=== PATIENT | female | born 1945 | race Caucasian/White ===

== ENCOUNTER 2024-11-30 14:35 | Inpatient (IN) | payer MEDICARE, SELFPAY ==
[2024-11-30 15:35] VITALS: BMI 33.3
[2024-11-30 16:00] VITALS: BP 173/80; PULSE 72; RESP 18; TEMP 36.8; O2SAT 98
[2024-11-30 16:21] VITALS: BP 148/71
[2024-11-30] MEDS: Potassium Chloride Oral Tablet 20 MEQ PO (17:47)
[2024-11-30 18:17] VITALS: O2SAT 98
[2024-11-30] MEDS: proCHLORPERazine 5 MG Tablet 10 MG PO (18:40)
--- NOTE | 2024-11-30 18:55 | CASEMGMT ---
Social Work Met with patient to complete initial assessment. Introduced self and role. Patients daughter Vicenta was also present during interview and helped provide information. SW verified contacts. Patient stated that she was a full code but would like to be a DNRCCA, nursing staff on TCU made aware. Patients goal is to return home with daughter. SW will continue to follow for DC planning. Bibi Wheeler, ETL SOFTWARE ENGINEER, SECURITY OPERATIONS ANALYST
[2024-11-30] MEDS: Albuterol IH (6.7 GM) 1 PUFF INHALER 2 PUFF INHALATION (19:03)
--- NOTE | 2024-11-30 20:11 | PCM.HP.STD ---
HPI - General General Date of Admission: 11/30/24 Date of Service: 11/30/24 Chief Complaint: Here for rehabilitation. HPI Narrative AL HINTON, is a 79 Female who presents with followin11/24/2024 [facility] ED shortness of breath. Short of breath for 5 hours, pulsoxi 70% on room air per patient. Chronic oxygen 4 liters per nasal cannula at night, Increased shortness of breath today. EKG okay, Troponin indeterminate, repeat troponin stable. covid negative, flu negative, rsv negative. CT chest negative for pulmonary embolism, negative for pneumonia. Pulsox 87% with ambulation. Admit for COPD exacerbation. 11/24/2024 Admit [facility]. Doxycycline iv, Solu-medrol iv for copd exacerbation. Doppler ultrasound bilateral lower extremity to rule out dvt. PT/OT/CM for weakness. 11/25/2024 Breathing improved, oxygen 2 liters per nasal cannula, wheezing, and coughing. Continues to smoke 1 pack per day.. Doxycycline iv, Solu-medrol iv, aerosols for COPD exacerbation. CT A/P negative for bowel obstruction, patient had abdominal pain. CT showed nodular fatty liver consistent with cirrhosis, cannot rule out metastatic disease. Start Laxatives for constipation. PT/OT for weakness. 11/25/2024 Doppler ultrasound bilateral lower extremity negative for dvt. 11/26/2024 Nausea. Titrate oxygen to pulsox 90%. Senna, Miralax, prune juice for constipation. TSH high, Synthroid increased to 200mcg daily. 11/27/2024 Nausea improved, stool in colostomy. PT/OT for debility. 11/28/2024 Nausea, watery stool in colostomy. Change IV doxycycline, IV solu-mectol to PO Doxycycline, PO prednisone, for COPD exacerbation. Fatty liver, possible cirrhosis, follow up with GI, oncology. 11/29/2024 Nausea much better. Await SNF Pre-CERT. 11/30/2024 Admit to TCU with debility, here for rehabilitation, strengthening, prior to discharge home with daughter. [facility] Medical History (Updated 11/30/24 @ 20:[address] Tony Campos MD) Cancer Smoker COPD (chronic obstructive pulmonary disease) Home Medications ?Medication ?Instructions ?Recorded ?Last Taken ?Type albuterol sulfate 90 mcg/actuation 2 puff inhalation Q4H PRN PRN sob 11/24/24 11/30/24 History aerosol inhaler aspirin 81 mg tablet,delayed 81 mg PO DAILY blood thinner 11/24/24 Unknown History release (Adult Aspirin Regimen) atorvastatin 10 mg tablet 10 mg PO DAILY cholesterol 11/24/24 Unknown History calcium phosphate,dibasic 77 1 tab PO DAILY supplement 11/24/24 Unknown History mg-vitamin D3 400 unit tablet cetirizine 10 mg tablet 10 mg PO DAILY allergies 11/24/24 Unknown History cyanocobalamin (vitamin B-12) 500 500 mcg PO QDAY supplement 11/24/24 Unknown History mcg tablet (B-12 DOTS) docusate sodium 100 mg capsule 100 mg PO BID stool softener 11/24/24 Unknown History (Colace) furosemide 20 mg tablet 20 mg PO DAILY fluid pill 11/24/24 Unknown History gabapentin 600 mg tablet 600 mg PO TID nerve pain 11/24/24 Unknown History glycopyrrolate 9 mcg-formoterol 2 puff inhalation BID respiratory 11/24/24 Unknown History 4.8 mcg HFA aerosol inhaler (Bevespi Aerosphere) hydrocodone-acetaminophen 5-325mg 1 tab PO Q8H PRN PRN pain 11/24/24 Unknown History 5mg-325mg pantoprazole 40 mg tablet,delayed 40 mg PO DAILY reflux 11/24/24 Unknown History release paroxetine HCl 30 mg tablet 30 mg PO DAILY mood 11/24/24 Unknown History polysaccharide iron complex 150 mg 150 mg PO DAILY supplement 11/24/24 Unknown History iron capsule (Ferrex) potassium chloride 20 mEq 20 meq PO BID supplement 11/24/24 Unknown History tablet,extended release(part/cryst) sennosides 8.6 mg tablet (Natural 8.6 mg PO DAILY stool softener 11/24/24 Unknown History Senna Laxative) thiamine HCl (vitamin B1) 100 mg 100 mg PO DAILY supplement 11/24/24 Unknown History tablet (Vitamin B-1) tizanidine 2 mg tablet 2 mg PO BID muscle spasms 11/24/24 Unknown History levothyroxine 100 mcg tablet 200 mcg (2 x 100 mcg) PO 11/30/24 Unknown Rx DAILY@0600 thyroid #30 tabs prednisone 20 mg tablet 40 mg (2 x 20 mg) PO BREAKFAST 11/30/24 Unknown Rx steroid 3 days #6 tabs Allergy/AdvReac Type Severity Reaction Status Date / Time Sulfa (Sulfonamide Allergy Unknown PT UNSURE Verified 11/24/24 17:34 Antibiotics) OF REACTION varenicline (From Chantix) AdvReac Severe SUICIDAL Verified 11/24/24 17:35 IDEATION Surgical History (Updated 11/30/24 @ 20:[address] Tony Campos MD) History of colostomy Social History (Updated 11/30/24 @ 20:[address] Tony Campos MD) household members: children and other details: Lives with daughter. Smoking Status: Current every day smoker tobacco type: cigarettes alcohol intake: never substance use type: does not use ROS Constitutional Constitutional: Reports weakness; Denies chills, fever(s) or weight gain ENT HEENT: Denies headache(s), nasal congestion or nasal discharge Cardiovascular Cardiovascular: Denies chest pain or palpitations Respiratory/Chest Respiratory/Chest: Reports shortness of breath with exertion; Denies cough or excessive phlegm production Gastrointestinal Gastrointestinal: Denies abdominal pain, nausea or vomiting Genitourinary Genitourinary: Denies dysuria Musculoskeletal Musculoskeletal: Denies joint pain or joint swelling Integumentary Integumentary: Denies rash or wounds Neurologic Neurologic: Denies focal weakness, numbness or tingling Psychiatric Psychiatric: Denies anxiety, auditory hallucinations, depression, homicidal ideation or suicidal ideation Vital Signs Vital Signs Vital Signs: 11/30/24 15:50 11/30/24 16:00 11/30/24 16:21 Temperature 98.3 F Temperature Source Temporal Pulse Rate 72 Pulse Rhythm Regular Pulse Strength Normal (2+) Respiratory Rate 18 Respiratory Effort Normal Non-Labored Respiratory Depth Normal Respiratory Pattern Normal Blood Pressure 173/80 H 148/71 H Blood Pressure Mean 111 96 Blood Pressure Source Monitor Monitor Pulse Ox 98 Oxygen Delivery Method Nasal Cannula Nasal Cannula Oxygen Flow Rate (L/min) 4 4 11/30/24 18:17 Temperature Temperature Source Pulse Rate Pulse Rhythm Pulse Strength Respiratory Rate Respiratory Effort Respiratory Depth Respiratory Pattern Blood Pressure Blood Pressure Mean Blood Pressure Source Pulse Ox 98 Oxygen Delivery Method Nasal Cannula Oxygen Flow Rate (L/min) 4 Weight Weight: 88.11 kg Body Mass Index (BMI) 33.3 Physical Exam Const alert General Appearance: cooperative HEENT normocephalic Eyes PERRL and EOMs intact bilaterally Neck supple, no JVD and no carotid bruits Resp normal respiratory effort, normal air movement and clear to auscultation bilaterally Cardio regular rate and regular rhythm GI normal to inspection, nondistended, normoactive bowel sounds, non-tender and non-distended GI Narrative: Colostomy present. Extremity normal capillary refill General Extremity: Negative for edema Skin no rashes or lesions noted General Skin Exam: no breakdown Psych affect normal Appearance: appropriate Assessment & Plan Assessment/Plan (1) History of colostomy: (2) Debility: (3) Acute respiratory failure with hypoxia: (4) COPD exacerbation: (5) Constipation: (6) Tobacco abuse: (7) Morbid obesity: (8) Fatty liver: (9) Hepatic cirrhosis: QUALIFIERS: Ascites presence: without ascites Hepatic cirrhosis type: unspecified hepatic cirrhosis Qualified Code(s): K74.60 - Unspecified cirrhosis of liver PLAN: Plan 79 year old female with below past medical history hospitalized for acute respiratory failure with hypoxia 2/2 copd exacerbation, complicated by constipation, fatty liver cirrhosis, rule out liver metastasis, admitted to TCU with debility, here for rehabilitation, strengthening, prior to discharge home with daughter. Debility - PT/OT. Pain - [place] 5/325mg 1 tablet q8 prn. Bowel - Senna 1 tablet daily, Colace 100mg bid, Dulcolax 10mg pr x 1 prn, Magnesium citrate 300mL po x 1 prn. Adult immunization - Administer pneumonia vaccine, covid vaccine, flu vaccine as appropriate. DVT prophylaxis - Lovenox 40mg sc daily. Liver masses - order CT guided biopsy of liver to evaluate for cirrhosis versus metastasis. COPD - Anoro 1 puff daily, Albuterol 2 puffs q4 prn, Prednisone taper. CV prophylaxis - Aspirin 81mg daily. Hyperlipidemia - Atorvastatin 10mg qhs. Calcium deficiency - Calcium D 1 tablet daily. Vitamin B12 deficiency - B12 500mcg daily. Edema - Furosemide 20mg daily. Neuropathic pain - Gabapentin 600mg tid. Iron deficiency anemia - Ferrex 150mg daily. Hypothyroidism - Levothyroxine 200mcg daily. Allergic rhinitis - Loratadine 10mg daily. Tobacco Abuse - Nicotine 14mg td daily. GERD - Pantoprazole 40mg daily. Depression - Paroxetine 30mg daily, stable chronic correction use, GDR not recommended. Dry Eyes - Artificial teras 2 gtt q1h prn. Hypokalemia - KCL 20meq bidcm. Nausea - Compazine 10mg q4 prn. Thiamine deficiency - Thiamine 100mg daily. Muscle spasm - Tizanidine 2mg bid.
[2024-11-30] MEDS: Gabapentin 600 MG Tablet PO (21:10)
[2024-11-30] MEDS: Ondansetron ODT 4 MG Tablet 8 MG PO (21:10)
[2024-11-30] MEDS: tiZANidine HCl 2 MG Tablet PO (21:11)
[2024-11-30] MEDS: Atorvastatin Calcium 10 MG Tablet PO (21:11)
[2024-11-30] MEDS: Docusate Sodium 100 MG Capsule PO (21:11)
--- NOTE | 2024-12-01 00:03 | NURSING ---
Patient c/o nausea this shift. PRN compazine was administered by dayshift right before shift change. This nurse offered patient seth zafar and saltine crackers. Patient accepted. This nurse consulted Dr. Campos via secure text. Per Dr. Campos, new order for PRN zofran 8mg PO Q8H. Order read back and verified by Dr. Campos.
[2024-12-01] MEDS: HYDROcodone Bitartrate/Apap 5/325 Tablet PO (01:13)
[2024-12-01] MEDS: proCHLORPERazine 5 MG Tablet 10 MG PO ×2 (01:13→11:09)
[2024-12-01] MEDS: Gabapentin 600 MG Tablet PO ×3 (05:28→22:13)
[2024-12-01] MEDS: Levothyroxine 100 MCG Tablet 200 MCG PO (05:28)
[2024-12-01] MEDS: Enoxaparin 40 MG/0.4 ML Syringe SC (05:29)
[2024-12-01] MEDS: Ondansetron ODT 4 MG Tablet 8 MG PO (05:29)
[2024-12-01 05:34] VITALS: RESP 18; O2SAT 98
[2024-12-01 07:56] LABS: Absolute Lymphocyte Count 0.83 X10^3/uL (0.83-4.51); Absolute Neutrophil Count 12.5 X10^3/uL (2.0-7.7); Basophil# 0.04 X10^3/uL; Basophil% 0.3 % (0-1); Eosinophil# 0.07 X10^3/uL; Eosinophils% 0.5 % (0-5); Hematocrit 38.8 % (37-47); Hemoglobin 12.8 g/dL (12.0-15.0); Lymphocyte # 0.83 X10^3/ul (0.83-4.51); Lymphocyte % 5.7 % (19-41); Mean Corpuscular Hgb 31.4 pg (27.0-32.0); Mean Corpuscular Volume 95.1 fL (81-99); Mean Platelet Vol. 10.3 fl (6.2-12.0); Monocyte# 0.95 X10^3/uL; Monocyte% 6.5 % (0-10); NRBC Flagged by Analyzer 0 % (0-5); Neutrophil # 12.53 X10^3/uL (2.7-7.7); Platelet Count 192 K/mm3 (150-450); RBC Distribution Width SD 45.6 fl (35.1-43.9); Red Blood Count 4.08 M/mm3 (4.2-5.4); White Blood Count 14.6 K/mm3 (4.4-11.0)
[2024-12-01 08:55] LABS: Anion Gap 11 (5-15); BUN 29 mg/dL (4-19); BUN/Creat Ratio 30.3 RATIO (10-20); Calcium,Total 8.5 mg/dL (7.6-11.0); Carbon Dioxide 29.7 mmol/L (21.0-32.0); Chloride 93 mmol/L (98-108); Creatinine, Serum 0.96 mg/dL (0.70-1.20); EST Glomerular Filtration Rate 60 (>60); Estimated Creatinine Clearance 51.06 ml/min (50-250); Glucose 137 mg/dL (70-99); Potassium 4.7 mmol/L (3.3-5.1); Sodium Level 134 mmol/L (133-145)
--- NOTE | 2024-12-01 09:42 | CASEMGMT ---
Addendum entered by Kathy Quinn 12/01/24 11:01: SW spoke with pt and agreed in completing HCPOA/LW, naming dtr, as POA. SW to complete prior to DC as time allows. Addendum entered by Kathy Quinn 12/01/24 10:02: Addendum: SW also educated dtr to Medicare benefit. Dtr confirmed pt does not have a secondary insurance. SW educated if pt remained past day 21, which is 12/20, pt would accrue a $209.50/day copay. Dtr and this worker confirmed the goal is for pt to DC home prior to 12/20. SW will assist with DC planning. Original Note: Social Work SW followed up with dtr on palliative care meeting. Dtr stated it was canceled for 11/30 d/t being in TCU, but plans to reschedule when pt discharges. SW to assist with coordination. SW inquired about advance directives. Dtr stated pt had changed code status to DNR-CCA, no intubation. SW inquired about HCPOA/LW. Dtr denied pt having those documents completed, but agrees to needing them completed. SW to follow up with pt on wishes to complete. Dtr appreciative. - SW sent secure email to [facility] notifying of pts admission and will notify when DC date is set to reschedule meeting. SW will continue to follow. Kathy WATTSW
[2024-12-01 10:02] VITALS: BP 121/62; PULSE 61; RESP 18; TEMP 36.1; O2SAT 98
[2024-12-01] MEDS: Loratadine 10 MG Tablet PO (10:08)
[2024-12-01] MEDS: predniSONE 20 MG Tablet 40 MG PO (10:08)
[2024-12-01] MEDS: Potassium Chloride Oral Tablet 20 MEQ PO ×2 (10:08→16:24)
[2024-12-01] MEDS: Umeclidinium Brm/Vilanterol 62.5-25 mcg Inh 1 PUFF INHALATION (10:08)
[2024-12-01] MEDS: Docusate Sodium 100 MG Capsule PO ×2 (10:08→22:13)
[2024-12-01] MEDS: Thiamine Hydrochloride 100 MG Tablet PO (10:08)
[2024-12-01] MEDS: Aspirin E.C. 81 MG Tablet PO (10:08)
[2024-12-01] MEDS: Iron Polysaccharide Complex 150 MG CAPSULE PO (10:08)
[2024-12-01] MEDS: Calcium Carb/Vitamin D 1 TABLET Tablet PO (10:08)
[2024-12-01] MEDS: Furosemide 20 MG Tablet PO (10:08)
[2024-12-01] MEDS: Nystatin Powder 15gm Bottle 1 APPLIC TOPICAL (10:09)
[2024-12-01] MEDS: Pantoprazole Sodium 40 MG Tablet PO (10:09)
[2024-12-01] MEDS: PARoxetine 10 MG Tablet 30 MG PO (10:09)
[2024-12-01] MEDS: Cyanocobalamin 500 MCG Tablet PO (10:09)
[2024-12-01] MEDS: tiZANidine HCl 2 MG Tablet PO ×2 (10:10→22:13)
[2024-12-01] MEDS: Tuberculin,Purif.prot.deriv. 50 TU/ML Vial 0.1 ML ID (11:09)
--- NOTE | 2024-12-01 12:59 | NURSING ---
Tamera from CT called- pt to go for liver biopsy 12/02/24. Pt is to be taken down at 830. Pt to be NPO after midnight . Hold Lovenox in AM 12/02/24
--- NOTE | 2024-12-01 15:18 | CHAPLAIN ---
Type of Pastoral Visit _x__ Initial Visit ___ Follow-up Visit ___ On-call Visit ___ General Patient Visit ___ Spiritual Assessment ___ Family Conference ___ Bereavement ___ Rapid Response ___ Code Blue ___ Other (describe below) Pastoral Care Referral From _x__ Patient ___ Family ___ Nurse ___ Physician ___ Transition Nurse ___ Electronics Specialist ___ Other (describe below) Sacrament/Intervention _x__ Active listening ___ Anointing ___ Tenriism ___ Bereavement ___ Communion ___ Rebecca exploration ___ _x__ Life review ___ Prayer ___ Reconciliation ___ Sacrament of Sick _x__ Supportive presence ___ Wedding ___ Other (describe below) Pastoral Comments patient is welcoming and asks this client integration manager to have a seat; pt is asked about her life and how she is handling this situation; pt gives some overview of her life and that she had moved back to [place] about two years ago to be near her daughter and family; pt had lived in [place] for over 20 years and cared for her elderly mother before she there; pt is admitting that she is now more like the one in need of care although she states that her health is pretty good even with the copd; pt has been affiliated with the [employer] [facility] but is not established with the local fellowship in [place] yet; pt is quite tired and is ready to sleep so the visit ended
--- NOTE | 2024-12-01 15:22 | PCM.PN.DRR ---
TCU RX Drug Regimen Review Subjective/Objective Subjective/Objective Subjective: 79 YOF admitted to TCU 11/30/24 s/p hospitalization for a COPD exacerbation. Admitted for rehabilitation and strengthening prior to discharge home where she currently resides with her daughter. Objective: Allergies Sulfa (Sulfonamide Antibiotics) Allergy (Unknown, Verified 11/24/24 17:34) PT UNSURE OF REACTION varenicline (From Chantix) Adverse Reaction (Severe, Verified 11/24/24 17:35) SUICIDAL IDEATION Current Medications Generic Name Dose Route Start Last Admin Trade Name Freq PRN Reason Stop Dose Admin Hydrocodone Bitart/Acetaminophen 1 tablet 11/30/24 15:22 12/01/24 01:13 Hydrocodone Bitartrate/Apap 5/325 Tablet PO 1 tablet Q8H PRN PRN Administration PAIN 1-10 Albuterol Sulfate 2.5 mg 12/01/24 07:41 Albuterol 2.5 Mg/3 Ml Vial.Neb. INHALATION Q2H PRN PRN DYSPNEA/WHEEZING/SOB Aspirin 81 mg 12/01/24 08:00 12/01/24 10:08 Aspirin E.C. 81 Mg Tablet PO 81 mg BREAKFAST ANN Administration Atorvastatin Calcium 10 mg 11/30/24 22:00 11/30/24 21:11 Atorvastatin Calcium 10 Mg Tablet PO 10 mg QHS ANN Administration Bisacodyl 10 mg 11/30/24 15:29 Bisacodyl 10 Mg Suppository RC DAILY PRN PRN Constipation Calcium/Vitamin D 1 tablet 12/01/24 08:00 12/01/24 10:08 Calcium Carb/Vitamin D 1 Tablet Tablet PO 1 tablet DAILYCM ANN Administration Cyanocobalamin 500 mcg 12/01/24 10:00 12/01/24 10:09 Cyanocobalamin 500 Mcg Tablet PO 500 mcg DAILY ANN Administration Docusate Sodium 100 mg 11/30/24 22:00 12/01/24 10:08 Docusate Sodium 100 Mg Capsule PO 100 mg BID ANN Administration Enoxaparin Sodium 40 mg 12/01/24 06:00 12/01/24 05:29 Enoxaparin 40 Mg/0.4 Ml Syringe SC 40 mg DAILY@0600 ANN Administration Furosemide 20 mg 12/01/24 10:00 12/01/24 10:08 Furosemide 20 Mg Tablet PO 20 mg DAILY ANN Administration Protocol Gabapentin 600 mg 11/30/24 22:00 12/01/24 05:28 Gabapentin 600 Mg Tablet PO 600 mg TID ANN Administration Glycerin/Hypromellose/Polyethylene 2 drp 11/30/24 15:29 Glycerin/Hypromellose/[id number] 15 Ml Bottle EACH EYE Q1H PRN DRY EYES Levothyroxine Sodium 200 mcg 12/01/24 06:00 12/01/24 05:28 Levothyroxine 100 Mcg Tablet PO 200 mcg DAILY@0600 ANN Administration Loratadine 10 mg 12/01/24 10:00 12/01/24 10:08 Loratadine 10 Mg Tablet PO 10 mg DAILY ANN Administration Magnesium Citrate 300 ml 11/30/24 15:29 Magnesium Citrate 300 Ml PO X1 PRN Constipation Nicotine 14 mg 12/01/24 10:00 12/01/24 10:09 Nicotine 14 Mg Patch TD 14 mg DAILY [facility] Administration Nystatin 1 applic 12/01/24 10:00 12/01/24 10:09 Nystatin Powder 15gm Bottle TOPICAL 1 applic BID ANN Administration Protocol Ondansetron HCl 8 mg 11/30/24 20:47 12/01/24 05:29 Ondansetron Odt 4 Mg Tablet PO 8 mg Q8H PRN PRN Administration NAUSEA/VOMITING Pantoprazole Sodium 40 mg 12/01/24 10:00 12/01/24 10:09 Pantoprazole Sodium 40 Mg Tablet PO 40 mg DAILY [facility] Administration Paroxetine HCl 30 mg 12/01/24 10:00 12/01/24 10:09 Paroxetine 10 Mg Tablet PO 30 mg DAILY [facility] Administration Polysaccharide Iron Complex 150 mg 12/01/24 10:00 12/01/24 10:08 Iron Polysaccharide Complex 150 Mg Capsule PO 150 mg DAILY [facility] Administration Potassium Chloride 20 meq 11/30/24 17:00 12/01/24 10:08 Potassium Chloride Oral Tablet 20 Meq PO 20 meq BIDCM [facility] Administration Prednisone 40 mg 12/01/24 08:00 12/01/24 10:08 Prednisone 20 Mg Tablet PO 12/06/24 08:01 40 mg BREAKFAST ANN Administration Prochlorperazine Maleate 10 mg 11/30/24 17:59 12/01/24 11:09 Prochlorperazine 5 Mg Tablet PO 10 mg Q4H PRN PRN Administration NAUSEA/VOMITING Senna 1 tablet 12/01/24 10:00 12/01/24 10:09 Senna Tablet PO Not Given DAILY ANN Sodium Chloride 10 - 40 ml 11/30/24 16:28 0.9% Saline Lock 10 Ml Syringe IV UD PRN SALINE FLUSH Thiamine HCl 100 mg 12/01/24 08:00 12/01/24 10:08 Thiamine Hydrochloride 100 Mg Tablet PO 100 mg DAILYCM ANN Administration Tizanidine HCl 2 mg 11/30/24 22:00 12/01/24 10:10 Tizanidine Hcl 2 Mg Tablet PO 2 mg BID ANN Administration Tuberculin PPD 0.1 ml 12/08/24 10:00 Tuberculin,Purif.Prot.Deriv. 50 Tu/Ml Vial ID 12/08/24 10:01 X1 ONE Umeclidinium/Vilanterol 1 puff 12/01/24 10:00 12/01/24 10:08 Umeclidinium Brm/Vilanterol 62.5-25 Mcg Inh INHALATION 1 puff DAILY ANN Administration Problem List Fatty liver (Acute) Morbid obesity (Acute) Constipation (Acute) COPD exacerbation (Chronic) Acute respiratory failure with hypoxia (Acute) Debility (Acute) History of colostomy (Acute) Hepatic cirrhosis (Acute) Tobacco abuse (Acute) Vital Signs Temp Pulse Resp BP Pulse Ox O2 Del Method O2 Flow Rate 97 F L 61 18 121/62 H 98 Nasal Cannula 4 12/01/24 10:02 12/01/24 10:02 12/01/24 10:02 12/01/24 10:02 12/01/24 10:02 12/01/24 12:10 12/01/24 12:30 Oxygen Flow Rate (L/min) 4 Oxygen Delivery Method Nasal Cannula Weight: 88.11 kg Body Mass Index (BMI) 33.3 Sodium 134 mmol/L (133-145) 12/01/24 07:30 Potassium 4.7 mmol/L (3.3-5.1) 12/01/24 07:30 Chloride 93 mmol/L (98-108) L 12/01/24 07:30 Carbon Dioxide 29.7 mmol/L (21.0-32.0) 12/01/24 07:30 Anion Gap 11 (5-15) 12/01/24 07:30 BUN 29 mg/dL (4-19) H 12/01/24 07:30 Creatinine 0.96 mg/dL (0.70-1.20) 12/01/24 07:30 Est GFR (MDRD) Non-Af 60 (>60) 12/01/24 07:30 BUN/Creatinine Ratio 30.3 RATIO (10-20) H 12/01/24 07:30 Glucose 137 mg/dL (70-99) H 12/01/24 07:30 Assessment/Plan: 1. Pain: [place] 1 tab PO Q8h PRN Pain 1-10. Please continue to monitor for increased/decreased s/s pain, PRN medication usage, nausea/constipation/oversedation with narcotic use. -To date, the patient has used 1 dose of PRN [place] for back pain rated 8/10. 2. COPD/Exacerbation: Anoro inhaler 1 puff Daily, Prednisone 40mg PO Daily thru 12/06, Albuterol inhalation Q2h PRN. Please continue to monitor HR ( last 61 BPM), S/s insomnia/agitation/ excessive hunger with steroid use, s/s thrush, s/s further exacerbations. 3. Cardiovascular/edema: Aspirin 81mg PO Daily, Lipitor 10mg PO QHS, Lasix 20mg PO Daily, KCl 20mEq PO BID. Please continue to monitor for S/S bleeding/bruising, I/O, lipid panel annually (none on file), K (last 4.7 on 12/01), renal function (CrCl 51 mL/min). 4. Neuropathic Pain: Gabapentin 600mg PO TID. Please continue to monitor for oversedation, renal function (CrCl 51mL/min). This is a BEER's criteria medication which can increase the risk of falls/fractures in patients >65 years of age. Please evaluate the risk vs. benefit of prolonged use if clinically indicated. Due to the patient's renal function, the recommended dose frequency for this patient would be twice daily dosing. Please consider decreasing gabapentin dose to 600mg PO BID based on current CrCl of 51mL/min if clinically indicated, thank you. 5. Hypothyroidism: Synthroid 200mcg PO daily. Please continue to monitor TSH levels (13.4 on 11/24/24), S/S hypothyroidism. 6. Allergic Rhinitis: Claritin 10mg PO Daily. Please continue to monitor for medication effectiveness. 7. GERD: Protonix 40mg PO Daily. Please continue to monitor for headache, abdominal pain, bloating. Please also encourage non-pharmacologic treatments to help minimize GERD flare-ups. 8. Nausea: Zofran 8mg PO Q8h PRN, Compazine 10mg PO Q4h PRN. Please continue to monitor for PRN medication usage, headache. - The patient has used 2 doses of PRN Zofran and 3 doses of PRN Compazine since admission. Per nursing documentation, the medications were effective in symptom management. 9. Muscle Spasm: Zanaflex 2mg PO BID. Please continue to monitor for oversedation, dizziness, fatigue, weakness. 10. Tobacco use: Nicotine Patch 14mg Daily. Please continue to monitor for local site irritation. Please also encourage non-pharmacologic therapies to help continue smoking cessation. 11. DVT Prophylaxis: Lovenox 40mg SC Daily. Please continue to monitor for S/S bleeding/bruising, H/H, renal function. 12. Dry Eyes: Artificial Tears 2 gtt OU Q1h PRN. 13. Skin Integrity: Nystatin powder topically BID. Please continue to monitor for skin redness, irritation, ulcer/wound formations. 14. General Wellness: Os-Christian+D 1 tab PO Daily, Cyanocobalamin 500mcg PO Daily, Ferrex 150mg PO Daily, Thiamine 100mg PO Daily. 15. Bowel: Senna 1 tab PO daily, Docusate 100mg PO BID, Dulcolax 10mg NV Daily PRN, magnesium Citrate 300mL PO x1 PRN. Please continue to monitor for increased/decreased constipation and/or diarrhea, abdominal pain. - The patient's last documented BM was on 11/29/24. Please continue to monitor for a regular bowel schedule Assessment/Plan for indications treated with psychotropic medications: 1. Depression: paroxetine 30mg PO Daily. Please consider a GDR by 05/2025 if clinically indicated, thank you. Medical chart and medication regimen reviewed. The following medication irregularities or issues were identified: 1. Neuropathic Pain: Gabapentin 600mg PO TID. Due to the patient's renal function, the recommended dose frequency for this patient would be twice daily dosing. Please consider decreasing gabapentin dose to 600mg PO BID based on current CrCl of 51mL/min if clinically indicated, thank you. 2. Patient is on Lipitor for hyperlipidemia. No lipid panel is on file in EMR. Please consider obtaining a lipid panel if clinically indicated, thank you. Date Date of Note: 12/01/24
[2024-12-01 15:45] VITALS: O2SAT 97
[2024-12-01] MEDS: Atorvastatin Calcium 10 MG Tablet PO (22:14)
--- NOTE | 2024-12-02 00:03 | NURSING ---
npo per order
[2024-12-02 07:05] VITALS: O2SAT 97
[2024-12-02 07:17] LABS: International Normalized Ratio 1.1; Prothrombin Time (Protime)PT. 14.2 SECONDS (11.7-14.9)
[2024-12-02 07:23] LABS: Partial Thromboplast Time 27.5 Seconds (24.1-36.2)
--- NOTE | 2024-12-02 08:30 | NURSING ---
Addendum entered by Jonathan Gold 12/02/24 11:08: Patient returned to the unit at this time. Original Note: Patient exited the unit at this time for procedure.
--- NOTE | 2024-12-02 09:45 | ASPIGT_PTH ---
PATIENT: AL HINTON LOC: [facility] U#:[id number] AGE/SX: 79/F ROOM: [facility] RE11/30/[address]: Dr. Tony Campos MD : 1945 BED: 1 DIS: 12/15/2024 SPEC #: [id number] RECD: 12/02/24 10:17 STATUS: ROCKY REPrecious #: [id number] PRASANTH: 12/02/24 09:[address]: Tony Campos Chi DEPT: SURGICAL PATHOLOGY RECD BY: Matthew Sifuentes ENTERED: 12/02/24 10:18 SP TYPE: ASP RAD OTHR DR: Heydi Hernández, DIESEL FLEET MECHANIC-C Tissues: A - Liver, NOS Procedures: FNA Specimen Adequacy Immunohistochemical Stains Special Stain Group II Surgery Specimen Level IV Surgery Specimen Level V Imprint (control) IHC Stain ADDITIONAL HEADER OPERATION: CT guided liver biopsy PRE-OP DIAGNOSIS: Masses TISSUE SUBMITTED: 18 gauge x 7 cores MICROSCOPIC DIAGNOSIS A. 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 Note: The history of a pulmonary mass is noted. IHCs were performed which support the histologic impression of metastatic small cell lung carcinoma - see microscopic description. COMMENT The specimen is evaluated at the time of biopsy by Dr. Stein. Immediate Evaluation = Positive for malignant cells. MICROSCOPIC DESCRIPTION Slides are reviewed. All matched controls reacted appropriately. IHC: POSITIVE - Pancytokeratin, CK7, TTF-1, Chromogranin, Synaptophysin, Ki67 (high proliferative index approaching 100%). NEGATIVE - CK20. These tests were developed and their performance characteristics determined by [facility]. They may not have been cleared or approved by the U.S. Food and Drug Administration. The FDA has determined that such clearance or approval is not necessary. The above immunohistochemical/dualISH markers are ordered and reviewed by the Pathologist. GROSS DESCRIPTION A. Received in fixative is one container labeled with the patient's name and designated Liver biopsy. The specimen consists of multiple fragments of light red tissue that in aggregate measure 2.8 x 0.3 x 0.1 cm. The specimen is totally submitted in one cassette. 12/02/2024 CPT:94119 ,[id number]
[2024-12-02 11:25] VITALS: BP 120/67; PULSE 70; RESP 18; TEMP 35.7; O2SAT 98
[2024-12-02] MEDS: proCHLORPERazine 5 MG Tablet 10 MG PO (11:32)
[2024-12-02] MEDS: Potassium Chloride Oral Tablet 20 MEQ PO ×2 (11:50→18:21)
[2024-12-02] MEDS: Calcium Carb/Vitamin D 1 TABLET Tablet PO (11:50)
[2024-12-02] MEDS: Aspirin E.C. 81 MG Tablet PO (11:50)
[2024-12-02] MEDS: Loratadine 10 MG Tablet PO (11:51)
[2024-12-02] MEDS: predniSONE 20 MG Tablet 40 MG PO (11:51)
[2024-12-02] MEDS: Thiamine Hydrochloride 100 MG Tablet PO (11:51)
[2024-12-02] MEDS: Furosemide 20 MG Tablet PO (11:52)
[2024-12-02] MEDS: Iron Polysaccharide Complex 150 MG CAPSULE PO (11:52)
[2024-12-02] MEDS: Pantoprazole Sodium 40 MG Tablet PO (11:53)
[2024-12-02] MEDS: tiZANidine HCl 2 MG Tablet PO ×2 (11:53→22:52)
[2024-12-02] MEDS: PARoxetine 10 MG Tablet 30 MG PO (11:53)
[2024-12-02] MEDS: Cyanocobalamin 500 MCG Tablet PO (11:53)
[2024-12-02] MEDS: Umeclidinium Brm/Vilanterol 62.5-25 mcg Inh 1 PUFF INHALATION (11:54)
[2024-12-02] MEDS: Nystatin Powder 15gm Bottle 1 APPLIC TOPICAL ×2 (11:59→22:47)
--- NOTE | 2024-12-02 12:29 | NURSING ---
Corporate Recruiter Note; Activity Asset: Antoine Cadena is independent in her choice of daily activities. At this time she stated she prefers to rest in her room. She enjoys reading and has a book her family will bring in from home. Her family will visit with her, she welcomes visits from the acoustical tile drill press operator and therapy dog when available. Staff has informed her of the dayroom, library and puzzles she may use if she would like. Staff will remind her of weekly activities offer in room activities and respect her right to say no.
[2024-12-02 15:14] VITALS: BP 104/42; PULSE 57; RESP 18; TEMP 35.7; O2SAT 98
[2024-12-02 16:05] VITALS: O2SAT 95
[2024-12-02] MEDS: Ondansetron ODT 4 MG Tablet 8 MG PO (21:42)
[2024-12-02 22:45] VITALS: PULSE 64; RESP 16; O2SAT 98
[2024-12-02] MEDS: HYDROcodone Bitartrate/Apap 5/325 Tablet PO (22:51)
[2024-12-02] MEDS: Atorvastatin Calcium 10 MG Tablet PO (22:52)
[2024-12-02] MEDS: Gabapentin 600 MG Tablet PO (22:52)
[2024-12-02] MEDS: Docusate Sodium 100 MG Capsule PO (22:52)
[2024-12-03] MEDS: Levothyroxine 100 MCG Tablet 200 MCG PO (06:41)
[2024-12-03] MEDS: Enoxaparin 40 MG/0.4 ML Syringe SC (06:41)
[2024-12-03] MEDS: Albuterol 2.5 MG/3 ML VIAL.NEB. INHALATION ×2 (07:00→07:01)
[2024-12-03 07:25] VITALS: PULSE 68; RESP 16; O2SAT 97
[2024-12-03 07:33] LABS: Cholesterol 159 mg/dL (<=200); High Density Lipoprotein 96 mg/dL; Low Density Lipoprotein Calc. 51 mg/dL; Triglycerides 59 mg/dL; Very Low Density Lipoprotein 12 mg/dL (5-40); cholesterol:hdl ratio screen 1.66
[2024-12-03 07:45] VITALS: PULSE 55; RESP 16; O2SAT 99
[2024-12-03 08:34] VITALS: BP 120/48; PULSE 68; RESP 18; TEMP 35.6; O2SAT 98
[2024-12-03] MEDS: Umeclidinium Brm/Vilanterol 62.5-25 mcg Inh 1 PUFF INHALATION (08:36)
[2024-12-03] MEDS: Cyanocobalamin 500 MCG Tablet PO (08:36)
[2024-12-03] MEDS: Thiamine Hydrochloride 100 MG Tablet PO (08:36)
[2024-12-03] MEDS: tiZANidine HCl 2 MG Tablet PO ×2 (08:36→20:25)
[2024-12-03] MEDS: Aspirin E.C. 81 MG Tablet PO (08:37)
[2024-12-03] MEDS: predniSONE 20 MG Tablet 40 MG PO (08:37)
[2024-12-03] MEDS: Pantoprazole Sodium 40 MG Tablet PO (08:37)
[2024-12-03] MEDS: Loratadine 10 MG Tablet PO (08:37)
[2024-12-03] MEDS: Calcium Carb/Vitamin D 1 TABLET Tablet PO (08:38)
[2024-12-03] MEDS: Furosemide 20 MG Tablet PO (08:38)
[2024-12-03] MEDS: Iron Polysaccharide Complex 150 MG CAPSULE PO (08:38)
[2024-12-03] MEDS: PARoxetine 10 MG Tablet 30 MG PO (08:39)
[2024-12-03] MEDS: Potassium Chloride Oral Tablet 20 MEQ PO ×2 (08:40→17:36)
[2024-12-03] MEDS: proCHLORPERazine 5 MG Tablet 10 MG PO ×2 (08:41→15:04)
[2024-12-03] MEDS: Gabapentin 600 MG Tablet PO ×2 (08:47→20:24)
[2024-12-03] MEDS: Nystatin Powder 15gm Bottle 1 APPLIC TOPICAL (08:48)
[2024-12-03] MEDS: 0.9% Saline Lock 10 ML Syringe IV (08:48)
[2024-12-03 12:23] VITALS: O2SAT 96
[2024-12-03] MEDS: Atorvastatin Calcium 10 MG Tablet PO (20:25)
[2024-12-04] MEDS: Levothyroxine 100 MCG Tablet 200 MCG PO (05:39)
[2024-12-04] MEDS: Enoxaparin 40 MG/0.4 ML Syringe SC (05:39)
[2024-12-04 06:44] VITALS: O2SAT 96
--- NOTE | 2024-12-04 08:11 | NURSING ---
0000: Osotmy changed d/t leakage. Periwound skin is excoriated and uncomfortable when skin perp was applied after the affected area was cleaned w/ soap and water. Resident assisted this nurse w/ changing the wafer as she has been independent w/ this task for approximately 4 years. Resident applied stoma paste around edge for wafer. Bag applied. Will continue to monitor.
[2024-12-04] MEDS: Umeclidinium Brm/Vilanterol 62.5-25 mcg Inh 1 PUFF INHALATION (09:24)
[2024-12-04] MEDS: Nystatin Powder 15gm Bottle 1 APPLIC TOPICAL ×2 (09:29→20:37)
[2024-12-04] MEDS: Gabapentin 600 MG Tablet PO ×2 (09:29→20:37)
[2024-12-04] MEDS: Potassium Chloride Oral Tablet 20 MEQ PO ×2 (09:30→16:44)
[2024-12-04] MEDS: Furosemide 20 MG Tablet PO (09:30)
[2024-12-04] MEDS: Cyanocobalamin 500 MCG Tablet PO (09:30)
[2024-12-04] MEDS: Pantoprazole Sodium 40 MG Tablet PO (09:30)
[2024-12-04] MEDS: Thiamine Hydrochloride 100 MG Tablet PO (09:31)
[2024-12-04] MEDS: Loratadine 10 MG Tablet PO (09:31)
[2024-12-04] MEDS: tiZANidine HCl 2 MG Tablet PO ×2 (09:31→20:37)
[2024-12-04] MEDS: Iron Polysaccharide Complex 150 MG CAPSULE PO (09:31)
[2024-12-04] MEDS: Aspirin E.C. 81 MG Tablet PO (09:31)
[2024-12-04] MEDS: PARoxetine 10 MG Tablet 30 MG PO (09:31)
[2024-12-04] MEDS: predniSONE 20 MG Tablet 40 MG PO (09:31)
[2024-12-04] MEDS: Calcium Carb/Vitamin D 1 TABLET Tablet PO (09:31)
[2024-12-04 12:15] VITALS: BP 117/97; PULSE 63; RESP 14; TEMP 36.7; O2SAT 98
[2024-12-04] MEDS: Docusate Sodium 100 MG Capsule PO (20:36)
[2024-12-04] MEDS: Atorvastatin Calcium 10 MG Tablet PO (20:37)
[2024-12-04 21:30] VITALS: RESP 16; O2SAT 97
[2024-12-05] MEDS: Ondansetron ODT 4 MG Tablet 8 MG PO (05:13)
[2024-12-05] MEDS: Enoxaparin 40 MG/0.4 ML Syringe SC (05:13)
[2024-12-05] MEDS: Levothyroxine 100 MCG Tablet 200 MCG PO (05:14)
[2024-12-05 08:20] VITALS: BP 152/68; PULSE 66; RESP 16; TEMP 36.3; O2SAT 99
[2024-12-05] MEDS: PARoxetine 10 MG Tablet 30 MG PO (08:21)
[2024-12-05] MEDS: Loratadine 10 MG Tablet PO (08:22)
[2024-12-05] MEDS: tiZANidine HCl 2 MG Tablet PO ×2 (08:22→21:11)
[2024-12-05] MEDS: Aspirin E.C. 81 MG Tablet PO (08:22)
[2024-12-05] MEDS: Thiamine Hydrochloride 100 MG Tablet PO (08:22)
[2024-12-05] MEDS: predniSONE 20 MG Tablet 40 MG PO (08:22)
[2024-12-05] MEDS: Cyanocobalamin 500 MCG Tablet PO (08:22)
[2024-12-05] MEDS: Iron Polysaccharide Complex 150 MG CAPSULE PO (08:23)
[2024-12-05] MEDS: Pantoprazole Sodium 40 MG Tablet PO (08:23)
[2024-12-05] MEDS: Potassium Chloride Oral Tablet 20 MEQ PO ×2 (08:23→16:53)
[2024-12-05] MEDS: Calcium Carb/Vitamin D 1 TABLET Tablet PO (08:23)
[2024-12-05] MEDS: Furosemide 20 MG Tablet PO (08:23)
[2024-12-05] MEDS: Nystatin Powder 15gm Bottle 1 APPLIC TOPICAL ×2 (08:24→21:12)
[2024-12-05] MEDS: Gabapentin 600 MG Tablet PO ×2 (08:29→21:10)
[2024-12-05] MEDS: Umeclidinium Brm/Vilanterol 62.5-25 mcg Inh 1 PUFF INHALATION (08:30)
[2024-12-05 09:15] VITALS: PULSE 68; RESP 18; O2SAT 99
[2024-12-05] MEDS: Albuterol 2.5 MG/3 ML VIAL.NEB. INHALATION ×2 (09:15→13:57)
[2024-12-05] MEDS: proCHLORPERazine 5 MG Tablet 10 MG PO ×2 (10:24→21:11)
--- NOTE | 2024-12-05 10:28 | NURSING ---
Offered covid vaccine, VIS provided. Resident says she'd like to take but not until closer to [place].
[2024-12-05 13:57] VITALS: PULSE 69; RESP 18; O2SAT 96
[2024-12-05] MEDS: HYDROcodone Bitartrate/Apap 5/325 Tablet PO (21:10)
[2024-12-05] MEDS: Atorvastatin Calcium 10 MG Tablet PO (21:11)
[2024-12-06] MEDS: Levothyroxine 100 MCG Tablet 200 MCG PO (05:28)
[2024-12-06] MEDS: Ondansetron ODT 4 MG Tablet 8 MG PO ×2 (05:29→20:57)
[2024-12-06] MEDS: Enoxaparin 40 MG/0.4 ML Syringe SC (05:29)
[2024-12-06 07:40] VITALS: O2SAT 95
[2024-12-06 07:54] VITALS: BP 142/73; PULSE 69; RESP 18; TEMP 36.1; O2SAT 99
[2024-12-06] MEDS: Potassium Chloride Oral Tablet 20 MEQ PO ×2 (08:00→17:20)
[2024-12-06] MEDS: Calcium Carb/Vitamin D 1 TABLET Tablet PO (08:00)
[2024-12-06] MEDS: Aspirin E.C. 81 MG Tablet PO (08:00)
[2024-12-06] MEDS: predniSONE 20 MG Tablet 40 MG PO (08:00)
[2024-12-06] MEDS: Pantoprazole Sodium 40 MG Tablet PO (08:01)
[2024-12-06] MEDS: Loratadine 10 MG Tablet PO (08:01)
[2024-12-06] MEDS: Thiamine Hydrochloride 100 MG Tablet PO (08:01)
[2024-12-06] MEDS: Furosemide 20 MG Tablet PO (08:01)
[2024-12-06] MEDS: Iron Polysaccharide Complex 150 MG CAPSULE PO (08:01)
[2024-12-06] MEDS: tiZANidine HCl 2 MG Tablet PO ×2 (08:02→20:58)
[2024-12-06] MEDS: PARoxetine 10 MG Tablet 30 MG PO (08:02)
[2024-12-06] MEDS: Cyanocobalamin 500 MCG Tablet PO (08:02)
[2024-12-06] MEDS: Gabapentin 600 MG Tablet PO ×2 (08:06→21:00)
[2024-12-06] MEDS: Umeclidinium Brm/Vilanterol 62.5-25 mcg Inh 1 PUFF INHALATION (08:08)
[2024-12-06] MEDS: Nystatin Powder 15gm Bottle 1 APPLIC TOPICAL ×2 (08:08→20:58)
[2024-12-06 10:05] VITALS: O2SAT 97
[2024-12-06] MEDS: HYDROcodone Bitartrate/Apap 5/325 Tablet PO (10:21)
[2024-12-06 10:40] VITALS: BMI 34.2
[2024-12-06] MEDS: proCHLORPERazine 5 MG Tablet 10 MG PO (17:20)
[2024-12-06] MEDS: Atorvastatin Calcium 10 MG Tablet PO (20:57)
[2024-12-06 22:40] VITALS: PULSE 60; RESP 22
[2024-12-06] MEDS: Albuterol 2.5 MG/3 ML VIAL.NEB. INHALATION (22:40)
[2024-12-06 22:45] VITALS: RESP 16
--- NOTE | 2024-12-06 22:53 | CPS ---
[2240] RN agreeable to take pt. on aerosol tx. when finished. MULTIPLE KNIFE EDGE TRIMMER OPERATOR called back to ER at this time.
[2024-12-07] MEDS: proCHLORPERazine 5 MG Tablet 10 MG PO ×2 (05:09→22:13)
[2024-12-07] MEDS: Enoxaparin 40 MG/0.4 ML Syringe SC (05:09)
[2024-12-07] MEDS: Levothyroxine 100 MCG Tablet 200 MCG PO (05:09)
--- NOTE | 2024-12-07 08:52 | NURSING ---
Psychological Aide Note; MDS for 12/07/2024 Complete
[2024-12-07 08:59] VITALS: BP 128/59; PULSE 66; RESP 18; TEMP 36.4; O2SAT 99
[2024-12-07] MEDS: Umeclidinium Brm/Vilanterol 62.5-25 mcg Inh 1 PUFF INHALATION (09:01)
[2024-12-07] MEDS: Thiamine Hydrochloride 100 MG Tablet PO (09:01)
[2024-12-07] MEDS: Cyanocobalamin 500 MCG Tablet PO (09:01)
[2024-12-07] MEDS: PARoxetine 10 MG Tablet 30 MG PO (09:02)
[2024-12-07] MEDS: tiZANidine HCl 2 MG Tablet PO ×2 (09:02→22:14)
[2024-12-07] MEDS: Loratadine 10 MG Tablet PO (09:02)
[2024-12-07] MEDS: Pantoprazole Sodium 40 MG Tablet PO (09:02)
[2024-12-07] MEDS: Iron Polysaccharide Complex 150 MG CAPSULE PO (09:02)
[2024-12-07] MEDS: Potassium Chloride Oral Tablet 20 MEQ PO ×2 (09:03→17:04)
[2024-12-07] MEDS: Aspirin E.C. 81 MG Tablet PO (09:03)
[2024-12-07] MEDS: Calcium Carb/Vitamin D 1 TABLET Tablet PO (09:03)
[2024-12-07] MEDS: Furosemide 20 MG Tablet PO (09:03)
[2024-12-07] MEDS: Nystatin Powder 15gm Bottle 1 APPLIC TOPICAL ×2 (09:08→22:15)
[2024-12-07] MEDS: Gabapentin 600 MG Tablet PO ×2 (09:08→22:13)
--- NOTE | 2024-12-07 09:14 | NURSING ---
Addendum entered by Zita Cunha 12/07/24 09:24: Dtr in room shortly after left VM, she is able to take her mother to appt. Original Note: Appt made with oncologist for 12/13/24 at 11:30. Called and left VM with dtr to see about transport.
--- NOTE | 2024-12-07 09:55 | CASEMGMT ---
Social Work IDT met with patient and dtr for care plan meeting. Discussed patient's progress in PT/OT/SN. Educated to Medicare benefit. Provided pt/family with written communication of insurance process and copay coverage during stay. Pt confirmed she does not have a secondary insurance and is aware of the copay cost. Dtr confirmed since copays are billed to pt, they can set up a payment plan, thus pt can remain beyond the 21 days, which is 12/20, if needed. Pt has oncology appt 12/13 and pt/family to determine DC plan and timeframe from that appt, along with progress made with therapy. Pt/dtr both confirmed they are already planning on having assistance for pt at home while dtr is working. SW provided resources for private duty agencies, [employer] and [employer], along with SW contact information to assist with DC planning. Both appreciative. SW will continue to follow. Kathy Quinn FILER AND SANDER FORENSIC SCIENTIST
[2024-12-07] MEDS: HYDROcodone Bitartrate/Apap 5/325 Tablet PO (11:00)
[2024-12-07 11:08] VITALS: O2SAT 97
--- NOTE | 2024-12-07 14:53 | CASEMGMT ---
Social Work- SW met with pt to complete BIMS; pt scored 13/15. Pt reports 0/2 on PHQ9. Pt reports no needs at this time. Pt reports she had a tough therapy session and is now very tired, but otherwise is doing pretty good and states she is pushing herself to make progress with therapy with hopes of heading home soon. DENNISE Stark
[2024-12-07] MEDS: Ondansetron ODT 4 MG Tablet 8 MG PO (17:05)
[2024-12-07] MEDS: Atorvastatin Calcium 10 MG Tablet PO (22:14)
[2024-12-07 22:30] VITALS: PULSE 76; RESP 16; O2SAT 99
[2024-12-07] MEDS: Albuterol 2.5 MG/3 ML VIAL.NEB. INHALATION (22:30)
--- NOTE | 2024-12-08 02:37 | NURSING ---
No self-transfers or impulsive behaviors observed per dayshift and nightshift report. Patient requesting alarms be removed. This nurse educated patient on use of call light when she needs assistance. Patient verbalizes understanding on use of call light for transfers and assistance. Patient understands, for safety concerns, she is not to transfer without Staff assistance. Patient understands alarms may be placed again if self-transfers and impulsive behaviors are observed. Per patient's request, alarms removed at this time. Staff aware.
[2024-12-08] MEDS: Enoxaparin 40 MG/0.4 ML Syringe SC (06:05)
[2024-12-08] MEDS: proCHLORPERazine 5 MG Tablet 10 MG PO (06:05)
[2024-12-08] MEDS: Levothyroxine 100 MCG Tablet 200 MCG PO (06:05)
[2024-12-08 07:48] LABS: Absolute Lymphocyte Count 0.58 X10^3/uL (0.83-4.51); Absolute Neutrophil Count 15.6 X10^3/uL (2.0-7.7); Basophil# 0.03 X10^3/uL; Basophil% 0.2 % (0-1); Eosinophil# 0.05 X10^3/uL; Eosinophils% 0.3 % (0-5); Hematocrit 35.1 % (37-47); Hemoglobin 11.6 g/dL (12.0-15.0); Lymphocyte # 0.58 X10^3/ul (0.83-4.51); Lymphocyte % 3.3 % (19-41); Mean Corpuscular Hgb 31.3 pg (27.0-32.0); Mean Corpuscular Volume 94.6 fL (81-99); Mean Platelet Vol. 10.5 fl (6.2-12.0); Monocyte# 0.94 X10^3/uL; Monocyte% 5.4 % (0-10); NRBC Flagged by Analyzer 0 % (0-5); Neutrophil # 15.61 X10^3/uL (2.7-7.7); Neutrophil % 88.9 % (47-70); POSITIVE DIFFERENTIAL YES; Platelet Count 149 K/mm3 (150-450); RBC Distribution Width CV 12.8 % (11.6-14.6); RBC Distribution Width SD 44.4 fl (35.1-43.9); Red Blood Count 3.71 M/mm3 (4.2-5.4); White Blood Count 17.5 K/mm3 (4.4-11.0)
[2024-12-08 08:11] VITALS: O2SAT 94
[2024-12-08 08:19] LABS: Anion Gap 10 (5-15); BUN 17 mg/dL (4-19); BUN/Creat Ratio 21.1 RATIO (10-20); Calcium,Total 8.5 mg/dL (7.6-11.0); Carbon Dioxide 31.6 mmol/L (21.0-32.0); Chloride 94 mmol/L (98-108); Creatinine, Serum 0.79 mg/dL (0.70-1.20); EST Glomerular Filtration Rate 76 (>60); Estimated Creatinine Clearance 62.26 ml/min (50-250); Glucose 138 mg/dL (70-99); Potassium 4.3 mmol/L (3.3-5.1); Sodium Level 136 mmol/L (133-145)
[2024-12-08 08:31] VITALS: BP 133/64; PULSE 64; RESP 18; TEMP 35.9; O2SAT 97
[2024-12-08] MEDS: Potassium Chloride Oral Tablet 20 MEQ PO ×2 (08:35→16:31)
[2024-12-08] MEDS: Thiamine Hydrochloride 100 MG Tablet PO (08:35)
[2024-12-08] MEDS: Calcium Carb/Vitamin D 1 TABLET Tablet PO (08:35)
[2024-12-08] MEDS: Aspirin E.C. 81 MG Tablet PO (08:35)
[2024-12-08] MEDS: Furosemide 20 MG Tablet PO (08:36)
[2024-12-08] MEDS: Cyanocobalamin 500 MCG Tablet PO (08:36)
[2024-12-08] MEDS: Pantoprazole Sodium 40 MG Tablet PO (08:36)
[2024-12-08] MEDS: tiZANidine HCl 2 MG Tablet PO ×2 (08:36→20:52)
[2024-12-08] MEDS: Loratadine 10 MG Tablet PO (08:36)
[2024-12-08] MEDS: Iron Polysaccharide Complex 150 MG CAPSULE PO (08:36)
[2024-12-08] MEDS: Umeclidinium Brm/Vilanterol 62.5-25 mcg Inh 1 PUFF INHALATION (08:37)
[2024-12-08] MEDS: PARoxetine 10 MG Tablet 30 MG PO (08:37)
[2024-12-08] MEDS: Gabapentin 600 MG Tablet PO ×2 (08:39→20:55)
[2024-12-08] MEDS: Nystatin Powder 15gm Bottle 1 APPLIC TOPICAL ×2 (08:41→20:51)
[2024-12-08] MEDS: Tuberculin,Purif.prot.deriv. 50 TU/ML Vial 0.1 ML ID (10:19)
--- NOTE | 2024-12-08 10:21 | NURSING ---
INTERDRY & POWDER APPLIED TO BILAT ABOMINAL FOLDS D/T YEASTY MOIST SORE AREAS. IMPROVEMENT NOTED FROM THURSDAY, PT STATES IT COMES AND GOES
[2024-12-08 10:42] VITALS: O2SAT 94
[2024-12-08 20:00] VITALS: PULSE 80; O2SAT 98
[2024-12-08] MEDS: Ondansetron ODT 4 MG Tablet 8 MG PO (20:50)
[2024-12-08] MEDS: Atorvastatin Calcium 10 MG Tablet PO (20:51)
[2024-12-08 21:56] VITALS: PULSE 70; RESP 18
[2024-12-08] MEDS: Albuterol 2.5 MG/3 ML VIAL.NEB. INHALATION (21:56)
[2024-12-09] MEDS: HYDROcodone Bitartrate/Apap 5/325 Tablet PO ×2 (03:03→16:18)
[2024-12-09] MEDS: Enoxaparin 40 MG/0.4 ML Syringe SC (05:26)
[2024-12-09] MEDS: Levothyroxine 100 MCG Tablet 200 MCG PO (05:26)
[2024-12-09] MEDS: proCHLORPERazine 5 MG Tablet 10 MG PO ×2 (06:47→21:58)
[2024-12-09 06:49] VITALS: PULSE 72; O2SAT 97
[2024-12-09 10:23] VITALS: O2SAT 97
[2024-12-09 10:35] VITALS: BP 151/68; PULSE 84; RESP 18; TEMP 36.1; O2SAT 95
[2024-12-09] MEDS: Calcium Carb/Vitamin D 1 TABLET Tablet PO (10:53)
[2024-12-09] MEDS: Potassium Chloride Oral Tablet 20 MEQ PO ×2 (10:53→17:16)
[2024-12-09] MEDS: Thiamine Hydrochloride 100 MG Tablet PO (10:53)
[2024-12-09] MEDS: Umeclidinium Brm/Vilanterol 62.5-25 mcg Inh 1 PUFF INHALATION (10:53)
[2024-12-09] MEDS: Aspirin E.C. 81 MG Tablet PO (10:53)
[2024-12-09] MEDS: Nystatin Powder 15gm Bottle 1 APPLIC TOPICAL ×2 (10:54→22:01)
[2024-12-09] MEDS: Loratadine 10 MG Tablet PO (10:54)
[2024-12-09] MEDS: Iron Polysaccharide Complex 150 MG CAPSULE PO (10:54)
[2024-12-09] MEDS: Furosemide 20 MG Tablet PO (10:54)
[2024-12-09] MEDS: Cyanocobalamin 500 MCG Tablet PO (10:55)
[2024-12-09] MEDS: tiZANidine HCl 2 MG Tablet PO ×2 (10:55→22:01)
[2024-12-09] MEDS: PARoxetine 10 MG Tablet 30 MG PO (10:55)
[2024-12-09] MEDS: Pantoprazole Sodium 40 MG Tablet PO (10:55)
[2024-12-09] MEDS: Gabapentin 600 MG Tablet PO ×2 (10:55→22:00)
--- NOTE | 2024-12-09 13:14 | PCM.CONS.GEN ---
Assessment & Plan Assessment/Plan (1) Chronic pain of toe of right foot: (2) Pain in left toe(s): (3) Nail dystrophy: (4) Tinea unguium: PLAN: Plan Evaluation performed. Reviewed findings, conditions and treatment options with her. Debrided toenails 1,2,3,4,5 bilateral using a nail nipper removing bulk, this was done without incident. Reviewed proper foot care with her and she can follow up with me as an outpatient. We discussed further workup of possible onychomycosis as an outpatient. HPI Consult Data Date of Consult: 12/09/24 HPI Narrative Reason for Consultation: Foot evaluation, care, and long, thickened painful toenails HPI Narrative: AL HINTON, is a 79 F who relates to very long, thickened, painful toenails 1,2,3,4,5 bilateral, she is not able to maintain them herself, she wonders if there is fungus in them, she relates this is chronic. She relates she moved from [place] about 2 years ago, moved her to be close to family. She has recently been diagnosed with cancer. [facility] Medical History (Updated 12/09/24 @ 13:[address] Edson Larsen, DPM) Cholecystectomy planned Cancer Smoker COPD (chronic obstructive pulmonary disease) Home Medications ?Medication ?Instructions ?Recorded ?Last Taken ?Type albuterol sulfate 90 mcg/actuation 2 puff inhalation Q4H PRN PRN sob 11/24/24 11/30/24 History aerosol inhaler aspirin 81 mg tablet,delayed 81 mg PO DAILY blood thinner 11/24/24 Unknown History release (Adult Aspirin Regimen) atorvastatin 10 mg tablet 10 mg PO DAILY cholesterol 11/24/24 Unknown History calcium phosphate,dibasic 77 1 tab PO DAILY supplement 11/24/24 Unknown History mg-vitamin D3 400 unit tablet cetirizine 10 mg tablet 10 mg PO DAILY allergies 11/24/24 Unknown History cyanocobalamin (vitamin B-12) 500 500 mcg PO QDAY supplement 11/24/24 Unknown History mcg tablet (B-12 DOTS) docusate sodium 100 mg capsule 100 mg PO BID stool softener 11/24/24 Unknown History (Colace) furosemide 20 mg tablet 20 mg PO DAILY fluid pill 11/24/24 Unknown History gabapentin 600 mg tablet 600 mg PO TID nerve pain 11/24/24 Unknown History glycopyrrolate 9 mcg-formoterol 2 puff inhalation BID respiratory 11/24/24 Unknown History 4.8 mcg HFA aerosol inhaler (Bevespi Aerosphere) hydrocodone-acetaminophen 5-325mg 1 tab PO Q8H PRN PRN pain 11/24/24 Unknown History 5mg-325mg pantoprazole 40 mg tablet,delayed 40 mg PO DAILY reflux 11/24/24 Unknown History release paroxetine HCl 30 mg tablet 30 mg PO DAILY mood 11/24/24 Unknown History polysaccharide iron complex 150 mg 150 mg PO DAILY supplement 11/24/24 Unknown History iron capsule (Ferrex) potassium chloride 20 mEq 20 meq PO BID supplement 11/24/24 Unknown History tablet,extended release(part/cryst) sennosides 8.6 mg tablet (Natural 8.6 mg PO DAILY stool softener 11/24/24 Unknown History Senna Laxative) thiamine HCl (vitamin B1) 100 mg 100 mg PO DAILY supplement 11/24/24 Unknown History tablet (Vitamin B-1) tizanidine 2 mg tablet 2 mg PO BID muscle spasms 11/24/24 Unknown History levothyroxine 100 mcg tablet 200 mcg (2 x 100 mcg) PO 11/30/24 Unknown Rx DAILY@0600 thyroid #30 tabs prednisone 20 mg tablet 40 mg (2 x 20 mg) PO BREAKFAST 11/30/24 Unknown Rx steroid 3 days #6 tabs Allergy/AdvReac Type Severity Reaction Status Date / Time Sulfa (Sulfonamide Allergy Unknown PT UNSURE Verified 12/05/24 05:32 Antibiotics) OF REACTION varenicline (From Chantix) AdvReac Severe SUICIDAL Verified 12/05/24 05:32 IDEATION Surgical History (Updated 12/05/24 @ 05:32 by Kenia Robles) History of colostomy Social History (System 12/05/24 @ 05:32 by Kenia Robles) household members: children and other details: Lives with daughter. Smoking Status: Current every day smoker tobacco type: cigarettes alcohol intake: never substance use type: does not use Physical Exam Const alert, oriented x3 and no apparent distress Constitutional Narrative: Bilateral foot/ankle: No open lesions, no tissue break down, no erythema, no ecchymosis, no macerations, no cellulitis; toenails 1,2,3,4,5 bilateral are very long, thickened, yellow, crumbly, dystrophic and painful, CFT < 2 seconds to all toes, there is diffuse lower extremity edema, sensation is intact to light touch, no m/s POP or pain on ROM to foot or ankle. Nutritional Appearance: obese Lab / Micro Data 12/08/24 07:24 12/08/24 07:24
--- NOTE | 2024-12-09 15:19 | CASEMGMT ---
Social Work SW completed advance directives with pt. Original and copy provided to pt. Copies placed on chart. Kathy Quinn CURRENCY MACHINE OPERATOR GLAZE SUPERVISOR
[2024-12-09 15:55] VITALS: PULSE 69; RESP 19
[2024-12-09] MEDS: Albuterol 2.5 MG/3 ML VIAL.NEB. INHALATION (15:55)
[2024-12-09] MEDS: Ondansetron ODT 4 MG Tablet 8 MG PO (16:18)
[2024-12-09] MEDS: Atorvastatin Calcium 10 MG Tablet PO (22:01)
[2024-12-09 22:05] VITALS: PULSE 84; O2SAT 97
[2024-12-10] MEDS: Levothyroxine 100 MCG Tablet 200 MCG PO (05:33)
[2024-12-10] MEDS: Enoxaparin 40 MG/0.4 ML Syringe SC (05:34)
[2024-12-10 10:16] VITALS: BP 136/64; PULSE 80; RESP 18; TEMP 36.2; O2SAT 98
[2024-12-10] MEDS: Potassium Chloride Oral Tablet 20 MEQ PO ×2 (10:18→17:03)
[2024-12-10] MEDS: Aspirin E.C. 81 MG Tablet PO (10:18)
[2024-12-10] MEDS: Loratadine 10 MG Tablet PO (10:19)
[2024-12-10] MEDS: Calcium Carb/Vitamin D 1 TABLET Tablet PO (10:19)
[2024-12-10] MEDS: Docusate Sodium 100 MG Capsule PO (10:19)
[2024-12-10] MEDS: Thiamine Hydrochloride 100 MG Tablet PO (10:19)
[2024-12-10] MEDS: Umeclidinium Brm/Vilanterol 62.5-25 mcg Inh 1 PUFF INHALATION (10:19)
[2024-12-10] MEDS: Furosemide 20 MG Tablet PO (10:20)
[2024-12-10] MEDS: Iron Polysaccharide Complex 150 MG CAPSULE PO (10:20)
[2024-12-10] MEDS: Ammonium Lactate 225 gm Bottle 1 APPLIC TOPICAL (10:20)
[2024-12-10] MEDS: Nystatin Powder 15gm Bottle 1 APPLIC TOPICAL (10:20)
[2024-12-10] MEDS: PARoxetine 10 MG Tablet 30 MG PO (10:21)
[2024-12-10] MEDS: Pantoprazole Sodium 40 MG Tablet PO (10:21)
[2024-12-10] MEDS: tiZANidine HCl 2 MG Tablet PO ×2 (10:22→20:12)
[2024-12-10] MEDS: Cyanocobalamin 500 MCG Tablet PO (10:22)
[2024-12-10] MEDS: Gabapentin 600 MG Tablet PO ×2 (10:23→20:12)
[2024-12-10] MEDS: HYDROcodone Bitartrate/Apap 5/325 Tablet PO (17:03)
[2024-12-10] MEDS: Ondansetron ODT 4 MG Tablet 8 MG PO (17:04)
[2024-12-10] MEDS: Atorvastatin Calcium 10 MG Tablet PO (20:12)
[2024-12-10] MEDS: proCHLORPERazine 5 MG Tablet 10 MG PO (20:33)
[2024-12-11] MEDS: Levothyroxine 100 MCG Tablet 200 MCG PO (06:20)
[2024-12-11] MEDS: Enoxaparin 40 MG/0.4 ML Syringe SC (06:20)
[2024-12-11 08:20] VITALS: O2SAT 94
[2024-12-11] MEDS: Gabapentin 600 MG Tablet PO ×2 (09:29→21:48)
[2024-12-11] MEDS: proCHLORPERazine 5 MG Tablet 10 MG PO (09:29)
[2024-12-11 09:30] VITALS: BP 128/50; PULSE 87; RESP 18; TEMP 36.3; O2SAT 93
[2024-12-11] MEDS: Umeclidinium Brm/Vilanterol 62.5-25 mcg Inh 1 PUFF INHALATION (09:34)
[2024-12-11] MEDS: Pantoprazole Sodium 40 MG Tablet PO (09:35)
[2024-12-11] MEDS: PARoxetine 10 MG Tablet 30 MG PO (09:35)
[2024-12-11] MEDS: tiZANidine HCl 2 MG Tablet PO ×2 (09:35→21:47)
[2024-12-11] MEDS: Cyanocobalamin 500 MCG Tablet PO (09:35)
[2024-12-11] MEDS: Loratadine 10 MG Tablet PO (09:36)
[2024-12-11] MEDS: Furosemide 20 MG Tablet PO (09:36)
[2024-12-11] MEDS: Aspirin E.C. 81 MG Tablet PO (09:36)
[2024-12-11] MEDS: Calcium Carb/Vitamin D 1 TABLET Tablet PO (09:36)
[2024-12-11] MEDS: Potassium Chloride Oral Tablet 20 MEQ PO ×2 (09:36→17:16)
[2024-12-11] MEDS: Thiamine Hydrochloride 100 MG Tablet PO (09:36)
[2024-12-11] MEDS: Iron Polysaccharide Complex 150 MG CAPSULE PO (09:36)
[2024-12-11] MEDS: Nystatin Powder 15gm Bottle 1 APPLIC TOPICAL ×2 (09:40→21:51)
[2024-12-11] MEDS: Ammonium Lactate 225 gm Bottle 1 APPLIC TOPICAL (09:40)
[2024-12-11] MEDS: HYDROcodone Bitartrate/Apap 5/325 Tablet PO ×2 (09:45→18:29)
[2024-12-11 14:43] VITALS: PULSE 71; RESP 18
[2024-12-11] MEDS: Albuterol 2.5 MG/3 ML VIAL.NEB. INHALATION ×2 (14:44→19:10)
[2024-12-11 19:10] VITALS: PULSE 78; RESP 18; O2SAT 93
[2024-12-11] MEDS: Atorvastatin Calcium 10 MG Tablet PO (21:47)
[2024-12-12] MEDS: proCHLORPERazine 5 MG Tablet 10 MG PO ×2 (05:39→21:19)
[2024-12-12] MEDS: HYDROcodone Bitartrate/Apap 5/325 Tablet PO (05:39)
[2024-12-12] MEDS: Levothyroxine 100 MCG Tablet 200 MCG PO (05:41)
[2024-12-12] MEDS: Enoxaparin 40 MG/0.4 ML Syringe SC (05:41)
[2024-12-12 07:05] VITALS: O2SAT 94
[2024-12-12] MEDS: Umeclidinium Brm/Vilanterol 62.5-25 mcg Inh 1 PUFF INHALATION (08:47)
[2024-12-12] MEDS: MethylPREDNISolone DosePak 4 MG BOX PO ×4 (08:48→21:20)
[2024-12-12] MEDS: PARoxetine 10 MG Tablet 30 MG PO (08:48)
[2024-12-12] MEDS: Aspirin E.C. 81 MG Tablet PO (08:49)
[2024-12-12] MEDS: Pantoprazole Sodium 40 MG Tablet PO (08:49)
[2024-12-12] MEDS: Furosemide 20 MG Tablet PO (08:49)
[2024-12-12] MEDS: Thiamine Hydrochloride 100 MG Tablet PO (08:49)
[2024-12-12] MEDS: Calcium Carb/Vitamin D 1 TABLET Tablet PO (08:49)
[2024-12-12] MEDS: tiZANidine HCl 2 MG Tablet PO ×2 (08:50→21:20)
[2024-12-12] MEDS: Loratadine 10 MG Tablet PO (08:50)
[2024-12-12] MEDS: Iron Polysaccharide Complex 150 MG CAPSULE PO (08:50)
[2024-12-12] MEDS: Cyanocobalamin 500 MCG Tablet PO (08:50)
[2024-12-12] MEDS: Potassium Chloride Oral Tablet 20 MEQ PO ×2 (08:50→18:21)
[2024-12-12] MEDS: Gabapentin 600 MG Tablet PO ×2 (08:56→21:19)
[2024-12-12] MEDS: Nystatin Powder 15gm Bottle 1 APPLIC TOPICAL ×2 (08:57→21:21)
[2024-12-12 10:00] VITALS: O2SAT 98
[2024-12-12 10:44] LABS: Color, Urine Yellow (Yellow); Glucose, Dipstick Normal (Normal); Ketone-Dipstick Negative (Negative); Leukocyte Esterase-Dipstick 25 /ul (Negative); Nitrite-Dipstick Negative (Negative); Occult Blood-Urine 250 /ul (Negative); Protein-Dipstick 30 mg/dl (Negative); Urine Clarity Clear (Clear); Urine Urobilinogen 8 mg/dl (Normal)
[2024-12-12 10:48] LABS: Urine Bilirubin Dipstick 3 mg/dL (Negative)
[2024-12-12 11:02] LABS: Red Blood Cells-Urine 25-50 SEEN /hpf (0-5); White Blood Cells 0-5 SEEN /hpf (0-5)
[2024-12-12 11:04] LABS: Bacteria 1+ /hpf (None Seen); Mucous, Urine RARE /hpf (<or=2+)
[2024-12-12 11:08] LABS: Squamous Epithelial Cells - UA 0-5 SEEN /hpf (5-10)
[2024-12-12 11:09] LABS: Calcium Oxalate Crystals Ur 1+ /hpf (<or=2+); Renal Epithelial Cells 0-5 SEEN /hpf (0-5); Transitional Epithelial - Ur 0-5 SEEN /hpf (0-5)
--- NOTE | 2024-12-12 14:32 | NURSING ---
Addendum entered by Laverne Cowart 12/12/24 15:13: Pt currently A&Ox4, states that her dtr works night shifts and typically sleeps on Mondays. Also states that dtr is planning to visit this aft/evening, requests that I wait to call and update dtr until later. Will call to update before end of shift if dtr is not present on unit before then. Original Note: Pt has intermittent confusion this morning, very weak with transfers. As of this afternoon, requires jared lift for transfers; baseline last week was standby assist with walker. Pt also has large, distended abdomen this morning. Bowel sounds x4 quadrants, noted formed stool to colostomy bag. Pt has been refusing stool softeners for past shifts d/t loose stools. Vitals: bp-116/77, p-82, r-18, t-97.4, sp02-94% on 4L. No respiratory distress noted. UA collected this morning, awaiting culture results. Called and notified Dr. Campos, received and readback orders for CBC, CMP, CT head no contrast, and CT lower abd/pelvis with contrast.
[2024-12-12 14:50] LABS: Absolute Lymphocyte Count 0.37 X10^3/uL (0.83-4.51); Absolute Neutrophil Count 13.9 X10^3/uL (2.0-7.7); Basophil# 0.02 X10^3/uL; Basophil% 0.1 % (0-1); Eosinophil# 0.03 X10^3/uL; Eosinophils% 0.2 % (0-5); Hematocrit 35.1 % (37-47); Hemoglobin 11.5 g/dL (12.0-15.0); Lymphocyte # 0.37 X10^3/ul (0.83-4.51); Lymphocyte % 2.4 % (19-41); Mean Corp Hgb Conc 32.8 g/dL (32-36); Mean Corpuscular Hgb 31.3 pg (27.0-32.0); Mean Corpuscular Volume 95.4 fL (81-99); Mean Platelet Vol. 10.2 fl (6.2-12.0); Monocyte# 0.69 X10^3/uL; Monocyte% 4.5 % (0-10); NRBC Flagged by Analyzer 0 % (0-5); Neutrophil # 13.89 X10^3/uL (2.7-7.7); Neutrophil % 91.5 % (47-70); POSITIVE DIFFERENTIAL YES; Platelet Count 123 K/mm3 (150-450); RBC Distribution Width CV 13.2 % (11.6-14.6); RBC Distribution Width SD 46.6 fl (35.1-43.9); Red Blood Count 3.68 M/mm3 (4.2-5.4); White Blood Count 15.2 K/mm3 (4.4-11.0)
[2024-12-12 15:31] LABS: ALB/GLOB Ratio 1.5 RATIO (0.9-2.4); AST(SGOT) 140 U/L (<=31); Alanine Aminotransfer ALT/SGPT 203 U/L (<=34); Albumin, Serum 3.3 g/dL (3.4-4.8); Alkaline Phosphatase 256 U/L (35-104); Anion Gap 13 (5-15); BUN 27 mg/dL (4-19); BUN/Creat Ratio 29.9 RATIO (10-20); Calcium,Total 8.8 mg/dL (7.6-11.0); Carbon Dioxide 29.1 mmol/L (21.0-32.0); Chloride 94 mmol/L (98-108); Creatinine, Serum 0.89 mg/dL (0.70-1.20); EST Glomerular Filtration Rate 66 (>60); Estimated Creatinine Clearance 55.96 ml/min (50-250); Globulin 2.2 g/dL (2.2-4.2); Glucose 134 mg/dL (70-99); Potassium 4.3 mmol/L (3.3-5.1); Protein, Total 5.5 g/dL (5.9-8.4); Sodium Level 137 mmol/L (133-145); Total Bilirubin 1.83 mg/dL (0.00-1.30)
--- NOTE | 2024-12-12 15:49 | NURSING ---
Addendum entered by Laverne Cowart 12/12/24 18:36: Called and updated pt's dtr Vicenta of new orders and change of appt method tomorrow. Pt and dtr in agreement with plan. Original Note: Called oncologist Dr. Mcneil's office, updated that resident now requiring 2 assist or jared for transfers, don't believe dtr will able to transport her. Doctor ok changing to virtual appt, dtr will need to log into resident's My Chart and it will prompt her through the steps for the virtual appt. Passed along to primary nurse who will update dtr today.
[2024-12-12 16:56] LABS: Ammonia 58.8 umol/L (11-51)
[2024-12-12] MEDS: Lactulose 20 GM/30 ML UDC PO (21:19)
[2024-12-12] MEDS: Atorvastatin Calcium 10 MG Tablet PO (21:20)
[2024-12-12 22:15] VITALS: PULSE 67; RESP 20
[2024-12-12] MEDS: Albuterol 2.5 MG/3 ML VIAL.NEB. INHALATION (22:15)
[2024-12-13 05:40] VITALS: RESP 18; O2SAT 98
[2024-12-13] MEDS: HYDROcodone Bitartrate/Apap 5/325 Tablet PO (05:43)
[2024-12-13] MEDS: Enoxaparin 40 MG/0.4 ML Syringe SC (05:43)
[2024-12-13] MEDS: proCHLORPERazine 5 MG Tablet 10 MG PO ×3 (05:43→22:03)
[2024-12-13] MEDS: Levothyroxine 100 MCG Tablet 200 MCG PO (05:45)
[2024-12-13 08:04] VITALS: O2SAT 93
[2024-12-13] MEDS: MethylPREDNISolone DosePak 4 MG BOX PO ×4 (08:13→22:05)
[2024-12-13] MEDS: Aspirin E.C. 81 MG Tablet PO (08:13)
[2024-12-13] MEDS: Calcium Carb/Vitamin D 1 TABLET Tablet PO (08:14)
[2024-12-13] MEDS: Potassium Chloride Oral Tablet 20 MEQ PO ×2 (08:14→17:26)
[2024-12-13] MEDS: Thiamine Hydrochloride 100 MG Tablet PO (08:14)
[2024-12-13] MEDS: Umeclidinium Brm/Vilanterol 62.5-25 mcg Inh 1 PUFF INHALATION (08:14)
[2024-12-13] MEDS: Iron Polysaccharide Complex 150 MG CAPSULE PO (08:15)
[2024-12-13] MEDS: Furosemide 20 MG Tablet PO (08:15)
[2024-12-13] MEDS: Loratadine 10 MG Tablet PO (08:15)
[2024-12-13] MEDS: Pantoprazole Sodium 40 MG Tablet PO (08:16)
[2024-12-13] MEDS: PARoxetine 10 MG Tablet 30 MG PO (08:16)
[2024-12-13] MEDS: Senna Tablet 1 TABLET PO (08:16)
[2024-12-13] MEDS: Docusate Sodium 100 MG Capsule PO ×2 (08:16→22:05)
[2024-12-13] MEDS: Cyanocobalamin 500 MCG Tablet PO (08:16)
[2024-12-13] MEDS: tiZANidine HCl 2 MG Tablet PO ×2 (08:17→22:05)
[2024-12-13] MEDS: Ammonium Lactate 225 gm Bottle 1 APPLIC TOPICAL (08:17)
[2024-12-13] MEDS: Nystatin Powder 15gm Bottle 1 APPLIC TOPICAL ×2 (08:18→22:06)
[2024-12-13] MEDS: Gabapentin 600 MG Tablet PO ×2 (08:22→22:03)
--- NOTE | 2024-12-13 08:30 | MDS.RN ---
Information for the MDS was obtained from review of the clinical record, interview of resident, staff, and direct observation of resident?s care.
[2024-12-13 08:35] VITALS: BP 127/61; PULSE 81; RESP 18; TEMP 35.9; O2SAT 96
[2024-12-13] MEDS: Lactulose 20 GM/30 ML UDC PO ×2 (09:16→22:05)
--- NOTE | 2024-12-13 10:07 | NURSING ---
pt contacted daughter to bring in colostomy supplies when she comes in for pt virtual oncologist appt. pt ammonia level elevated 58.8, dr bean aware, new orders lactulose BID, consult Dr Reis for encephalopathy & Liver mets.
--- NOTE | 2024-12-13 10:53 | NURSING ---
daughter at bedside, brought in colostomy supplies. daughter updated on CT brain results, ammonia level and order for lactulose. as well as consult for GI
--- NOTE | 2024-12-13 12:06 | NURSING ---
colostomy emptied 225cc liquid mustard color stool at this time. pt eating lunch, drowsy. daughter left after oncologist appt, states oncologist wanting to start chemo by end of this week. DENNISE Chavez to call daughter regarding discharge.
[2024-12-13 13:22] VITALS: PULSE 73; RESP 20
[2024-12-13] MEDS: Albuterol 2.5 MG/3 ML VIAL.NEB. INHALATION ×2 (13:23→17:43)
[2024-12-13 13:52] VITALS: O2SAT 98
--- NOTE | 2024-12-13 15:04 | CASEMGMT ---
Addendum entered by Kathy Quinn 12/13/24 15:14: Received return call from dtr. Dtr uncertain if she/family would like to puruse chemo given the pt's confusion and weakness. Dtr plans on talking to the Dr further before making a decision. SW offered to discuss hospice, if that would be appropriate for family. Dtr agreed it may be a consideration. Dtr acknowledged pt cannot return home at this current condition. SW offered ongoing support. Dtr to notify this worker when a decision is made. Original Note: Social Work SW notified by nursing that oncologist is recommending starting chemo immediately with pt. Pt is now a jared lift and IDT is recommending a SNF for care. - SW left VM with dtr to discuss DC plans. - SW met with patient in attempt to discuss, however, pt not lucid and difficulty following conversation. Will await return call from dtr. Kathy Quinn COFFEE BREAK ATTENDANT ALUMNI RELATIONS COORDINATOR
[2024-12-13 17:41] VITALS: PULSE 82; RESP 19
--- NOTE | 2024-12-13 19:52 | EX.PCM.CON.G ---
HPI Consult Data Date of Consult: 12/13/24 HPI Narrative Reason for Consultation: Abnormal LFTs HPI Narrative: AL HINTON, is a79 F was admitted to [facility] with shortness of breath. She has a past medical history of COPD, chronic hypoxic respiratory failure on 4L NC nocturnal, known history of lung cancer. She is currently not on chemotherapy. She is status post colostomy for history of possible perforated diverticulitis. In the ER she was diagnosed with AE COPD complicated by clinical evidence of [id number] Hypoxic Respiratory Insufficiency compounded by CTA of the chest done in the ER which revealed no evidence of pulmonary embolism but did show ~25 mm Right upper lobe pulmonary nodule concerning for primary lung malignancy with severe upper lobe predominant emphysema and multiple enlarged predominantly Right-sided hilar and mediastinal lymph nodes concerning for metastases in addition to hepatic cirrhosis without visualized focal lesion. She was admitted to be managed for acute COPD exacerbation. She was started on IV solumedrol, and breathing treatment with bronchodilators. She was also placed on IV doxycycline and IV solumedrol. Her shortness of breath improved and she felt much better. Hospital course was complicated by abdominal pain which she thought twas due to possible bowel obstruction, as she had had same in the past. CT abdomen and pelvis with contrast showed no evidence of obstruction but showed constipation. She was therefore placed on laxatives and stool softeners which help with the constipation and abdominal pain resolved. Patient and family requested placement in SNF. She was discharged to SNF to 11/30/2024. She recently underwent liver biopsy: A. 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 see note [facility] Medical History Cholecystectomy planned Cancer Smoker COPD (chronic obstructive pulmonary disease) Home Medications ?Medication ?Instructions ?Recorded ?Last Taken ?Type albuterol sulfate 90 mcg/actuation 2 puff inhalation Q4H PRN PRN sob 11/24/24 11/30/24 History aerosol inhaler aspirin 81 mg tablet,delayed 81 mg PO DAILY blood thinner 11/24/24 Unknown History release (Adult Aspirin Regimen) atorvastatin 10 mg tablet 10 mg PO DAILY cholesterol 11/24/24 Unknown History calcium phosphate,dibasic 77 1 tab PO DAILY supplement 11/24/24 Unknown History mg-vitamin D3 400 unit tablet cetirizine 10 mg tablet 10 mg PO DAILY allergies 11/24/24 Unknown History cyanocobalamin (vitamin B-12) 500 500 mcg PO QDAY supplement 11/24/24 Unknown History mcg tablet (B-12 DOTS) docusate sodium 100 mg capsule 100 mg PO BID stool softener 11/24/24 Unknown History (Colace) furosemide 20 mg tablet 20 mg PO DAILY fluid pill 11/24/24 Unknown History gabapentin 600 mg tablet 600 mg PO TID nerve pain 11/24/24 Unknown History glycopyrrolate 9 mcg-formoterol 2 puff inhalation BID respiratory 11/24/24 Unknown History 4.8 mcg HFA aerosol inhaler (Bevespi Aerosphere) hydrocodone-acetaminophen 5-325mg 1 tab PO Q8H PRN PRN pain 11/24/24 Unknown History 5mg-325mg pantoprazole 40 mg tablet,delayed 40 mg PO DAILY reflux 11/24/24 Unknown History release paroxetine HCl 30 mg tablet 30 mg PO DAILY mood 11/24/24 Unknown History polysaccharide iron complex 150 mg 150 mg PO DAILY supplement 11/24/24 Unknown History iron capsule (Ferrex) potassium chloride 20 mEq 20 meq PO BID supplement 11/24/24 Unknown History tablet,extended release(part/cryst) sennosides 8.6 mg tablet (Natural 8.6 mg PO DAILY stool softener 11/24/24 Unknown History Senna Laxative) thiamine HCl (vitamin B1) 100 mg 100 mg PO DAILY supplement 11/24/24 Unknown History tablet (Vitamin B-1) tizanidine 2 mg tablet 2 mg PO BID muscle spasms 11/24/24 Unknown History levothyroxine 100 mcg tablet 200 mcg (2 x 100 mcg) PO 11/30/24 Unknown Rx DAILY@0600 thyroid #30 tabs prednisone 20 mg tablet 40 mg (2 x 20 mg) PO BREAKFAST 11/30/24 Unknown Rx steroid 3 days #6 tabs Allergy/AdvReac Type Severity Reaction Status Date / Time Sulfa (Sulfonamide Allergy Unknown PT UNSURE Verified 12/05/24 05:32 Antibiotics) OF REACTION varenicline (From Chantix) AdvReac Severe SUICIDAL Verified 12/05/24 05:32 IDEATION Surgical History History of colostomy Social History household members: children and other details: Lives with daughter. Smoking Status: Current every day smoker tobacco type: cigarettes alcohol intake: never substance use type: does not use ROS Constitutional Constitutional: Reports weakness; Denies chills, fever(s) or weight gain ENT HEENT: Denies headache(s), nasal congestion or nasal discharge Cardiovascular Cardiovascular: Denies chest pain or palpitations Respiratory/Chest Respiratory/Chest: Reports shortness of breath with exertion; Denies cough or excessive phlegm production Gastrointestinal Gastrointestinal: Denies abdominal pain, nausea or vomiting Genitourinary Genitourinary: Denies dysuria Musculoskeletal Musculoskeletal: Denies joint pain or joint swelling Integumentary Integumentary: Denies rash or wounds Neurologic Neurologic: Denies focal weakness, numbness or tingling Psychiatric Psychiatric: Denies anxiety, auditory hallucinations, depression, homicidal ideation or suicidal ideation Physical Exam Const alert General Appearance: cooperative HEENT normocephalic Eyes PERRL and EOMs intact bilaterally Neck supple, no JVD and no carotid bruits Resp normal respiratory effort, normal air movement and clear to auscultation bilaterally Cardio regular rate and regular rhythm GI normal to inspection, nondistended, normoactive bowel sounds, non-tender and non-distended GI Narrative: Colostomy present. Extremity normal capillary refill General Extremity: Negative for edema Skin no rashes or lesions noted General Skin Exam: no breakdown Psych affect normal Appearance: appropriate Lab / Micro Data 12/12/24 14:45 12/12/24 14:45 Assessment & Plan Assessment/Plan (1) Hepatic cirrhosis: QUALIFIERS: Hepatic cirrhosis type: unspecified hepatic cirrhosis Ascites presence: without ascites Qualified Code(s): K74.60 - Unspecified cirrhosis of liver PLAN: 79-year-old patient with progressive jaundice and dissociation of bilirubin and aminotransferases, who had no history of relevant liver diseases or tumor except the previous diagnosis of fatty liver disease. A previous abdominal computed tomography (CT) scan showed ascites without hepatic focal lesions. Laboratory studies for other chronic liver disease has not been performed such as hepatitis or underlying autoimmune disorders. She is not showing signs of acute liver failure at this time but she is very high risk to going to acute liver failure. Her current MELD is 26 and she is a child Hernandez class B. She has a grade 1 to grade 2 hepatic encephalopathy at this time. She is not showing any signs of bleeding at this time and her kidney function is stable without signs of hepatorenal syndrome. Her most recent contrast-enhanced CT revealed diffuse regenerative nodules in the liver. The patient underwent liver biopsy, which demonstrated that the liver was infiltrated by pulmonary neuroendocrine tumor classified as small cell lung cancer.? 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 Recommendation: -Labs for autoimmune disease affecting the liver, INR,, PT/ PTT, ammonia, alpha-fetoprotein, protein electrophoresis, labs for chronic viral hepatitis B and C,, HIV, primary bili cirrhosis and primary sclerosing cholangitis, MRCP. -With her current MELD her 90-day mortality is 30%. Charges/Coding Visit Charges Inpatient E&M: 59200 [facility] Init L2
[2024-12-13 21:36] LABS: International Normalized Ratio 1.2; Partial Thromboplast Time 25.1 Seconds (24.1-36.2); Prothrombin Time (Protime)PT. 15.5 SECONDS (11.7-14.9)
[2024-12-13] MEDS: Atorvastatin Calcium 10 MG Tablet PO (22:05)
[2024-12-13 22:07] LABS: Ammonia 44.7 umol/L (11-51)
[2024-12-13 22:19] LABS: LDH 1059 U/L (84-246)
[2024-12-14 04:05] VITALS: PULSE 78; RESP 22
[2024-12-14] MEDS: Albuterol 2.5 MG/3 ML VIAL.NEB. INHALATION ×2 (04:05→21:35)
[2024-12-14] MEDS: Levothyroxine 100 MCG Tablet 200 MCG PO (05:10)
[2024-12-14] MEDS: Enoxaparin 40 MG/0.4 ML Syringe SC (05:10)
[2024-12-14] MEDS: Ondansetron ODT 4 MG Tablet 8 MG PO (05:11)
[2024-12-14 06:32] LABS: Ammonia 41.2 umol/L (11-51)
[2024-12-14 07:00] VITALS: O2SAT 96
[2024-12-14] MEDS: HYDROcodone Bitartrate/Apap 5/325 Tablet PO (09:35)
[2024-12-14] MEDS: proCHLORPERazine 5 MG Tablet 10 MG PO ×2 (09:36→17:18)
[2024-12-14 10:05] VITALS: BP 121/56; PULSE 83; RESP 18; TEMP 35.8; O2SAT 97
[2024-12-14] MEDS: Umeclidinium Brm/Vilanterol 62.5-25 mcg Inh 1 PUFF INHALATION (10:09)
[2024-12-14] MEDS: Ammonium Lactate 225 gm Bottle 1 APPLIC TOPICAL (10:11)
[2024-12-14] MEDS: Nystatin Powder 15gm Bottle 1 APPLIC TOPICAL ×2 (10:15→21:00)
--- NOTE | 2024-12-14 10:15 | NURSING ---
pt nauseated this am, and painful. PRN meds given. pt states Agueda, I am really sick today pt asked for legs to be elevated in chair, elevated legs, pillows placed where pt felt it was comfortable. resting in chair with eyes closed. refusing any other morning meds at this time. will monitor.
[2024-12-14] MEDS: PARoxetine 10 MG Tablet 30 MG PO (12:46)
[2024-12-14] MEDS: Furosemide 20 MG Tablet PO (12:46)
[2024-12-14] MEDS: Pantoprazole Sodium 40 MG Tablet PO (12:46)
[2024-12-14] MEDS: Lactulose 20 GM/30 ML UDC PO ×2 (12:46→20:58)
[2024-12-14] MEDS: tiZANidine HCl 2 MG Tablet PO ×2 (12:47→20:59)
[2024-12-14] MEDS: Aspirin E.C. 81 MG Tablet PO (12:50)
[2024-12-14] MEDS: Gabapentin 600 MG Tablet PO ×2 (12:50→21:00)
--- NOTE | 2024-12-14 12:51 | NURSING ---
pt willing to take some meds at this time, stomach feeling better.
[2024-12-14 14:01] VITALS: O2SAT 98
--- NOTE | 2024-12-14 15:52 | CASEMGMT ---
Social Work SW received return call from dtr after speaking with the oncologist. Per the dtr, the oncologist explained the chemo would potentially help her liver, but acknowledges, pt does not have a favorable prognosis. Per dtr, oncologist recommended completing the first round of chemo treatment of 3 weeks, which dtr explained to be 2 consecutive days of 4 total infusions, that would be in done in the oncology office. Dtr expressed her skepticism to having pt complete the treatments given her current condition and decline. Dtr asked further clarifying question on returning home, DC to a SNF with hospice. SW explained hospice can provide services in any environment, but given pt is not 'bed bound' and is jared lift for transfers, that home is not recommended without the needed assistance. Dtr agreed and would want pt to have quality of life. Dtr stated that a SNF is the only option. Dtr inquired about hospice IPU. SW explained there are certain criteria pt needs to meet to qualify for that unit, which the hospice physician decides. Some criteria include pain or symptom management and imminent end of life. Dtr agreed she does not feel pt is exhibiting those signs currently, and to pursue SNF placement. SW inquired about payment. Dtr provided financial information and pt does not have funds to pay OOP and likely will qualify for JOSE. SW offered to place referral to [facility] to begin application process. SW offered list of SNFs in preferred geographical area, INN with pt?s insurance, including quality and resource data via [employer]. Dtr agreed to text link. SW sent [facility] SNFs via link. SW explained there may be some difficulty in securing an accepting facility d/t chemo tx and JOSE pending status. Dtr expressed understanding and agreed, if it all works out, then [pt] will pursue chemo, but if it doesn't, then that is the universe's sign that she shouldn't pursue chemo. SW accepted and will continue assisting with process. Dtr appreciative. - MARY JANE verbally updated Dr. Campos on above. - MARY JANE sent secure email referral to Alicia at [facility]. Will continue to follow. Kathy Quinn CREDIT UNION EXAMINER ROTARY DRILLER
[2024-12-14] MEDS: MethylPREDNISolone DosePak 4 MG BOX PO ×2 (17:18→20:58)
--- NOTE | 2024-12-14 17:36 | NURSING ---
colostomy leaking from bottom of flange, colostomy appliance changed with some assist from pt.
--- NOTE | 2024-12-14 21:30 | NURSING ---
Offered patient assist to bed, patient declines stating prefers to sleep in recliner more comfortable. Positioned in recliner for comfort, BLE elevated. Denies requests. Call light in reach.
[2024-12-14 21:35] VITALS: PULSE 74; RESP 20
[2024-12-14 22:00] VITALS: PULSE 73; RESP 18; O2SAT 98
[2024-12-15] MEDS: Ondansetron ODT 4 MG Tablet 8 MG PO ×2 (03:17→18:53)
--- NOTE | 2024-12-15 03:30 | NURSING ---
observed attempting self transfer from BSC to recliner, assisted to recliner x2 staff assist, gait weak and unsteady. Intermittent confusion observed. Verbal cues required to complete tasks, patient states I don't know why I get so confused sometimes. Patient requests assist to bed at this time, mechanical lift x2 staff assist, positioned for comfort, colostomy emptied, O2 on via NC. Denies further requests. Call light in reach. Written communication left for Dr. Campos regarding noted increased confusion and increased weakness, self-transfer attempt, +3 edema to BLE, and documented poor appetite on 12/14/24.
[2024-12-15 03:49] VITALS: PULSE 78; RESP 18; O2SAT 97
[2024-12-15 04:35] VITALS: PULSE 74; RESP 20
[2024-12-15] MEDS: Albuterol 2.5 MG/3 ML VIAL.NEB. INHALATION (04:35)
[2024-12-15] MEDS: Levothyroxine 100 MCG Tablet 200 MCG PO (05:03)
[2024-12-15] MEDS: Enoxaparin 40 MG/0.4 ML Syringe SC (05:03)
[2024-12-15] MEDS: HYDROcodone Bitartrate/Apap 5/325 Tablet PO (05:03)
--- NOTE | 2024-12-15 05:18 | NURSING ---
Presents as restless and anxious at times, yells out at times during periods of confusion, written communication left for Dr. Campos
[2024-12-15 06:37] LABS: Absolute Lymphocyte Count 0.59 X10^3/uL (0.83-4.51); Absolute Neutrophil Count 14.1 X10^3/uL (2.0-7.7); Basophil# 0.04 X10^3/uL; Basophil% 0.3 % (0-1); Eosinophil# 0.04 X10^3/uL; Eosinophils% 0.3 % (0-5); Hematocrit 32.3 % (37-47); Hemoglobin 10.5 g/dL (12.0-15.0); Lymphocyte # 0.59 X10^3/ul (0.83-4.51); Lymphocyte % 3.7 % (19-41); Mean Corp Hgb Conc 32.5 g/dL (32-36); Mean Corpuscular Hgb 31.2 pg (27.0-32.0); Mean Corpuscular Volume 95.8 fL (81-99); Monocyte# 0.67 X10^3/uL; Monocyte% 4.3 % (0-10); NRBC Flagged by Analyzer 0.1 % (0-5); Neutrophil # 14.13 X10^3/uL (2.7-7.7); Neutrophil % 89.6 % (47-70); POSITIVE DIFFERENTIAL YES; Platelet Count 122 K/mm3 (150-450); RBC Distribution Width CV 13.6 % (11.6-14.6); RBC Distribution Width SD 47.9 fl (35.1-43.9); Red Blood Count 3.37 M/mm3 (4.2-5.4); White Blood Count 15.8 K/mm3 (4.4-11.0)
[2024-12-15 06:46] LABS: Ammonia 34.9 umol/L (11-51)
[2024-12-15 06:48] LABS: Anion Gap 14 (5-15); BUN 32 mg/dL (4-19); Carbon Dioxide 29.5 mmol/L (21.0-32.0); Chloride 96 mmol/L (98-108); EST Glomerular Filtration Rate 51 (>60); Estimated Creatinine Clearance 45.28 ml/min (50-250); Glucose 134 mg/dL (70-99); Potassium 4.5 mmol/L (3.3-5.1); Sodium Level 140 mmol/L (133-145)
--- NOTE | 2024-12-15 06:50 | NURSING ---
Observed self removing oxygen, reapplied via NC @ 4L, written communication left for Dr. Campos
[2024-12-15 09:07] VITALS: BP 109/43; PULSE 85; RESP 30; TEMP 36.3; O2SAT 96
[2024-12-15] MEDS: proCHLORPERazine 5 MG Tablet 10 MG PO (09:11)
[2024-12-15] MEDS: MethylPREDNISolone DosePak 4 MG BOX PO (09:11)
[2024-12-15] MEDS: Umeclidinium Brm/Vilanterol 62.5-25 mcg Inh 1 PUFF INHALATION (09:12)
[2024-12-15] MEDS: Lactulose 20 GM/30 ML UDC PO (09:12)
[2024-12-15] MEDS: Nystatin Powder 15gm Bottle 1 APPLIC TOPICAL (09:12)
[2024-12-15] MEDS: Ammonium Lactate 225 gm Bottle 1 APPLIC TOPICAL (09:12)
[2024-12-15] MEDS: Pantoprazole Sodium 40 MG Tablet PO (09:13)
[2024-12-15] MEDS: PARoxetine 10 MG Tablet 30 MG PO (09:13)
[2024-12-15] MEDS: tiZANidine HCl 2 MG Tablet PO (09:14)
[2024-12-15] MEDS: Gabapentin 600 MG Tablet PO (09:15)
--- NOTE | 2024-12-15 09:34 | NURSING ---
Addendum entered by Jonathan Gold 12/15/24 10:31: Patient sitting up in recliner chair, leaning forward and rocking back and forth. Patient moaning and grimacing. Furrowed brow noted. Patient given PRN Morphine at this time. Will monitor. Call light within reach. Addendum entered by Jonathan Gold 12/15/24 10:01: Updated Dr. Campos. New orders received for Morphine Sulfate and Ativan intensol. VORB. Original Note: Patient awake and alert this morning, but lethargic and weak. Patient very pale/dusky in color. Patient answers questions appropriately this morning. Patient c/o shortness of breath, pain, and nausea. Patient moaning and grimacing with furrowed brow. Patient having increase in work of breathing on observation. Respirations labored at 30 breaths per minute. Patient is restless trying to get out of bed stay repeatedly I need to sit up. Patient grabbed at her neck. Patient adjusted in bed, HOB elevated and pillows placed behind patient's back to increase elevation. This provided some relief. Patient declined breathing treatment at this time. Patient was able to take all AM medications. Increased in swelling noted to patient's BL Le's, +3 pitting edema. PRN for nausea given. Patient is not due for PRN for pain at this time. Patient was transferred to her recliner chair, x3 assist. Patient very weak with transfer. Patient states all I want is to be comfortable. Will update . MARY JANE updated.
--- NOTE | 2024-12-15 09:50 | CASEMGMT ---
Addendum entered by Kathy Quinn 12/15/24 11:29: SW met with pt, dtr and ex-. SW asked the pt if she wanted to be comfortable or if she wanted to pursue treatment. Pt did not hesitate and stated she wants to be comfortable. Dtr and ex- agree. Both request IPU, if possible. SW to place referral. Educated if pt is not accepted at IPU, SW will continue assisting family in JOSE application and SNF placement with hospice. Both agreed. SW sent secure referral via email to [facility]. Family and this worker will await call to schedule nurse visit. Addendum entered by Kathy Quinn 12/15/24 10:50: Received return call from dtr. SW educated to change in condition, and request for comfort meds with a change to pt's code status. Dtr is a nurse and agreed to comfort meds and DNR-CC. Dtr stated she will arrive in 15 minutes and this worker will meet with dtr for further treatment plans. Original Note: Social Work RN reported to this worker that pt is restless, painful, low resperations, ongoing attempts to get out of bed d/t restlessness. Requested this worker speak with pt's dtr about changing code status to DNR-CC to allow comfort meds and offer referral to hospice IPU. SW agreed. Left VM with dtr requesting immediate return call. Kathy Quinn MSW TABLE SETTER
[2024-12-15] MEDS: morphine (oral solution) 10MG/0.5ML Syringe 10 MG SL/PO ×2 (10:26→18:53)
--- NOTE | 2024-12-15 11:30 | NURSING ---
Patient sitting up in recliner chair. PRN effective for pain. Patient resting more comfortably at this time. No moaning, frowning, or grimacing noted. Respirations even and unlabored. Call light within reach. Patient denies further needs at this time.
--- NOTE | 2024-12-15 15:50 | CASEMGMT ---
Social Work SW spoke with hospice nurse, Ling, and confirmed pt is approved at [facility] Ling to schedule transport through hospice. - SW followed up with family and both appreciative and relieved with approval. - SW attempted to speak with pt and complete MDS assessment, but pt resting soundly and was not appropriate to awake. - Floor nurses aware. - MARY JANE updated Alicia at [facility]. - Plan: DC 12/15 to [facility] IPU Kathy Quinn SQUARE SHEAR OPERATOR CLINICAL DOCUMENTATION MANAGER
[2024-12-15 16:09] LABS: Anti-Mitochondrial AB <20.0 Units (0.0-20.0)
--- NOTE | 2024-12-15 17:18 | NURSING ---
Report called to [facility], report given to Sumeet.
--- NOTE | 2024-12-15 17:35 | DS.PCM_ITS ---
Providers Date of Admission: 11/30/24 Primary Care Physician: Heydi Hernández, HOTEL RESERVATIONIST-C Consultations 12/07/24 17:34 Consult: Podiatry Routine Consulting Provider: Edson Larsen Reason for Consult: General foot care. EMERGENT Consult: No Notified: Yes Date Notified: 12/08/24 Time Notified: 09:00 Method of Notification: Verbal 12/12/24 18:47 Consult: Gastroenterology Routine Consulting Provider: [facility] Reason for Consult: Liver mets, encephalopathy. EMERGENT Consult: No MD Notified: Yes Date Notified: 12/13/24 Time Notified: 09:45 Method of Notification: Text 12/15/24 11:23 Consult: Hospice / Palliative Care Routine Consulting Provider: [facility] Reason for Consult: HOSPICE - IPU - DX: lung cancer, COPD EMERGENT Consult: Yes Notified: Yes Date Notified: 12/15/24 Time Notified: 11:23 Method of Notification: Verbal Reason For Visit: AE COPD, RESPIRATORY INSUFFICENCY Diagnosis Discharge Diagnosis (1) Hepatic cirrhosis: Status: Acute Code(s): K74.60 - Unspecified cirrhosis of liver Qualifiers: Hepatic cirrhosis type: unspecified hepatic cirrhosis Ascites presence: without ascites Qualified Code(s): K74.60 - Unspecified cirrhosis of liver Plan 79 year old female with below past medical history hospitalized for acute respiratory failure with hypoxia 2/2 copd exacerbation, complicated by constipation, fatty liver cirrhosis, rule out liver metastasis, admitted to TCU with debility, here for rehabilitation, strengthening, prior to discharge home with daughter. * Debility - PT/OT. * Pain - [place] 5/325mg 1 tablet q8 prn. * Bowel - Senna 1 tablet daily, Colace 100mg bid, Dulcolax 10mg pr x 1 prn, Magnesium citrate 300mL po x 1 prn. * Adult immunization - Administer pneumonia vaccine, covid vaccine, flu vaccine as appropriate. * DVT prophylaxis - Lovenox 40mg sc daily. * Liver masses - order CT guided biopsy of liver to evaluate for cirrhosis versus metastasis. * COPD - Anoro 1 puff daily, Albuterol 2 puffs q4 prn, Prednisone taper. * CV prophylaxis - Aspirin 81mg daily. * Hyperlipidemia - Atorvastatin 10mg qhs. * Calcium deficiency - Calcium D 1 tablet daily. * Vitamin B12 deficiency - B12 500mcg daily. * Edema - Furosemide 20mg daily. * Neuropathic pain - Gabapentin 600mg tid. * Iron deficiency anemia - Ferrex 150mg daily. * Hypothyroidism - Levothyroxine 200mcg daily. * Allergic rhinitis - Loratadine 10mg daily. * Tobacco Abuse - Nicotine 14mg td daily. * GERD - Pantoprazole 40mg daily. * Depression - Paroxetine 30mg daily, stable chronic jail use, GDR not recommended. * Dry Eyes - Artificial teras 2 gtt q1h prn. * Hypokalemia - KCL 20meq bidcm. * Nausea - Compazine 10mg q4 prn. * Thiamine deficiency - Thiamine 100mg daily. * Muscle spasm - Tizanidine 2mg bid. Hospital Course Operations None Procedures - (Liver biopsy.) Summary of Care Provided Minutes Spent on Discharge: 35 Hospital Course: 79 year old female with below past medical history hospitalized for acute respiratory failure with hypoxia 2/2 copd exacerbation, complicated by constipation, fatty liver cirrhosis, rule out liver metastasis, admitted to TCU with debility, here for rehabilitation, strengthening, prior to discharge home with daughter. Liver biopsy showed metastatic lung cancer. 12/15/2024 Resident dying, declined aggressive treatment. Discharge to Inpatient Hospice 12/15/2024 for terminal care. Physical Exam Const alert General Appearance: cooperative HEENT normocephalic Eyes PERRL and EOMs intact bilaterally Neck supple, no JVD and no carotid bruits Resp normal respiratory effort, normal air movement and clear to auscultation bilaterally Cardio regular rate and regular rhythm GI normal to inspection, nondistended, normoactive bowel sounds, non-tender and non-distended Extremity normal capillary refill General Extremity: Negative for edema Skin no rashes or lesions noted General Skin Exam: no breakdown Psych affect normal Appearance: appropriate Weight / BMI Weight Weight: 90.86 kg Body Mass Index (BMI) 34.2 ABG / Lab / Microbiology Data 12/15/24 06:20 12/15/24 06:20 Laboratory: Laboratory Results - last 24 hr 12/13/24 20:15: Anti-Mitochondrial Ab <20.0 12/15/24 06:20: WBC 15.8 H, RBC 3.37 L, Hgb 10.5 L, Hct 32.3 L, MCV 95.8, MCH 31.2, MCHC 32.5, RDW Std Deviation 47.9 H, RDW Coeff of Jocelyne 13.6, Plt Count 122 L, MPV 11.0, Immature Gran % (Auto) 1.800 H, Neut % (Auto) 89.6 H, Lymph % (Auto) 3.7 L, [place] % (Auto) 4.3, Eos % (Auto) 0.3, Baso % (Auto) 0.3, Absolute Neuts (auto) 14.1 H, Absolute Lymphs (auto) 0.59 L, Nucleated RBC % 0.1, Sodium 140, Potassium 4.5, Chloride 96 L, Carbon Dioxide 29.5, Anion Gap 14, BUN 32 H, Creatinine 1.10, Estim Creat Clear Calc 45.28 L, Est GFR (MDRD) Non-Af 51 L, B UN/Creatinine Ratio 29.0 H, Glucose 134 H, Calcium 9.0, Ammonia 34.9 Microbiology: Microbiology 12/12/24 03:15 Urine, Clean Catch Urine Culture - Final Mixed Gram Positive Organisms D/C Instructions Discharge Diet: No restrictions Discharge Activity: Return to Normal Activity May resume sexual activity in: No Restrictions Weight Bearing Status: Weight bearing as tolerated DC O2, CPAP, BIPAP Needs Home O2 Discharge instructions: No Additional Instructions: Discharge to Inpatient Hospice 12/15/2024 for terminal care. Please Follow Up With: Dr. Javed Mcneil Meaningful Use Info Meaningful Use Meaningful Use Diagnoses (Choose all that apply): None applicable Ischemic Stroke Statin Dosing Therapy Reference: STATIN DOSE THERAPY REFERENCE: * Patients > 75 years receive moderate or high dose statin therapy. * Patients 75 years or YOUNGER should receive HIGH intensity statin dose unless contraindicated. You will be required to document reason for non-treatment if statin daily dose does not meet guidelines. HIGH DOSE STATIN THERAPY DAILY Atorvastatin > than or = to 40 mg Rosuvastatin > than or = to 20 mg Amlodipine + Atorvastatin > than or = to 2.5/40 mg Ezetimibe + Simvastatin 10/80 mg Simvastatin 80mg Discharge Plan Admission Admit Date/Time: 11/30/24 14:35 Primary Reason for Your Visit: Debility. Attending Provider: Tony Campos Chi Primary Care Provider: Heydi Hernández Consulting Providers: Edson Larsen; Isaac Reagan; Bianca Isbell; Nataliya Gibbons; Kourtney Bradshaw; Rhea Winslow HOTEL RESERVATIONIST; Felecia Wiley Instructions Additional Instructions / Restrictions: Discharge to Inpatient Hospice 12/15/2024 for terminal care. Discharge Orders/Prescriptions Prescriptions: Discontinued albuterol sulfate 90 mcg/actuation HFA aerosol inhaler 2 puff INHALATION Q4H PRN PRN (Reason: sob) atorvastatin 10 mg tablet 10 mg PO DAILY furosemide 20 mg tablet 20 mg PO DAILY gabapentin 600 mg tablet 600 mg PO TID tizanidine 2 mg tablet 2 mg PO BID cetirizine 10 mg tablet 10 mg PO DAILY hydrocodone-acetaminophen 5-325 mg tablet 1 tab PO Q8H PRN PRN (Reason: pain) potassium chloride 20 mEq tablet,ER particles/crystals 20 meq PO BID paroxetine HCl 30 mg tablet 30 mg PO DAILY pantoprazole 40 mg tablet,delayed release (DR/EC) 40 mg PO DAILY Bevespi Aerosphere 9-4.8 mcg HFA aerosol inhaler 2 puff INHALATION BID sennosides [Natural Senna Laxative] 8.6 mg tablet 8.6 mg PO DAILY docusate sodium [Colace] 100 mg capsule 100 mg PO BID aspirin [Adult Aspirin Regimen] 81 mg tablet,delayed release (DR/EC) 81 mg PO DAILY cyanocobalamin (vitamin B-12) [B-12 DOTS] 500 mcg tablet 500 mcg PO QDAY thiamine HCl (vitamin B1) [Vitamin B-1] 100 mg tablet 100 mg PO DAILY calcium phos,dibas-vitamin D3 77-400 mg-unit tablet 1 tab PO DAILY polysaccharide iron complex [Ferrex 150] 150 mg iron capsule 150 mg PO DAILY prednisone 20 mg Tablet 40 mg PO BREAKFAST 3 Days Qty: 6 0RF levothyroxine 100 mcg Tablet 200 mcg PO DAILY@0600 Qty: 30 2RF Referrals / Follow Up: [facility] [Provider Group] (Follow-up after DC for liver disease ) Heydi Hernández, HOTEL RESERVATIONIST-C [Primary Care Provider] - Disposition Disposition (needs filled in before D/C Order can be placed): Hospice in Medical Facility
--- NOTE | 2024-12-15 20:46 | NURSING ---
[facility] EMS present on unit with patient school admissions representative/ex- Chencho. EMS regional transports patient off unit via cot to [facility] IPU at this time, 4L O2 in place via Nasal cannula.. Patient discharged from unit at this time. Patient rep (Chencho) takes remaining patient belongings.
[2024-12-15 20:49] VITALS: BP 120/48; PULSE 84; RESP 20; TEMP 35.7; O2SAT 96
[2024-12-24 06:27] LABS: AFP, Tumor Marker < 1.8 ng/mL (0.0-9.2); Albumin 2.8 g/dL (2.9-4.4); Alpha-1-Globulins 0.4 g/dL (0.0-0.4); Anti-Smooth Muscle ABS 6 Units (0-19); Gamma Globulin 0.6 g/dL (0.4-1.8); HEPATITIS B SURFACE AG Negative (Negative); Hep C Antibodies Non Reactive (Non Reactive); Hepatitis A IgM Antibody Negative (Negative); Hepatitis B Core AB IgM Negative (Negative); Immunoglobulin A 283 mg/dL (64-422); Immunoglobulin E 27 IU/mL (6-495); Immunoglobulin G 650 mg/dL (586-1602); Immunoglobulin M 66 mg/dL (26-217); PROEL- TOTAL PROTEIN 5.6 g/dL (6.0-8.5)
== END 2024-12-15 20:48 | disposition hospice, inpatient (51) | DRG 180 ==
PROVIDERS: Internal Medicine Gastroenterology; Radiology Diagnostic Radiology; Admitting Provider Family Medicine Geriatric Medicine; PCP Nurse Practitioner Family; Visit Provider Family Medicine Geriatric Medicine
DX: C34.11 Malignant neoplasm of upper lobe, right bronchus or lung (principal); K72.00 Acute and subacute hepatic failure without coma; J44.1 Chronic obstructive pulmonary disease with (acute) exacerbation; C77.1 Secondary and unspecified malignant neoplasm of intrathoracic lymph nodes; J96.11 Chronic respiratory failure with hypoxia; C78.7 Secondary malignant neoplasm of liver and intrahepatic bile duct; R18.8 Other ascites; R16.0 Hepatomegaly, not elsewhere classified; K76.82 Hepatic encephalopathy; E66.01 Morbid (severe) obesity due to excess calories; D50.9 Iron deficiency anemia, unspecified; F32.A Depression, unspecified; E03.9 Hypothyroidism, unspecified; Z93.3 Colostomy status; K74.60 Unspecified cirrhosis of liver; E53.8 Deficiency of other specified B group vitamins; F17.210 Nicotine dependence, cigarettes, uncomplicated; E55.9 Vitamin D deficiency, unspecified; G62.9 Polyneuropathy, unspecified; K76.0 Fatty (change of) liver, not elsewhere classified; K21.9 Gastro-esophageal reflux disease without esophagitis; L60.3 Nail dystrophy; E87.6 Hypokalemia; J30.9 Allergic rhinitis, unspecified; E78.5 Hyperlipidemia, unspecified; L85.3 Xerosis cutis; B35.1 Tinea unguium; Z79.890 Hormone replacement therapy; Z79.82 Long term (current) use of aspirin; Z79.899 Other long term (current) drug therapy; Z68.33 Body mass index [BMI] 33.0-33.9, adult; G89.29 Other chronic pain; Z99.81 Dependence on supplemental oxygen
CPT/HCPCS: 36415; 80048; 80053; 80061; 80074; 81001; 82105; 82140; 82378; 82784; 82785; 83516; 83615; 84165; 85025; 85610; 85730; 86334; 87086; 87088; 88172; 88305; 88307; 88313; 88341; 88342; 94640; 94668; 97110; 97116; 97162; 97166; 97530; 97535; 97802; A4216

== ENCOUNTER → 2024-12-02 | Outpatient (CLI) | payer MEDICARE, SELFPAY ==
[2024-12-02] VITALS (15 sets, daily range): BP systolic 104–149; BP diastolic 55–73; PULSE 57–68; RESP 12–21; TEMP 35.8; O2SAT 90–99; BMI 33.5
[2024-12-02] MEDS: Ondansetron 4 MG/2 ML Vial IV (09:24)
--- NOTE | 2024-12-02 09:25 | CT_ITS ---
PROCEDURE: BIOPSY/INJ OR NEEDLE PLACEMENT REASON FOR EXAM: CIRRHOSIS/FATTY LIVER. Possible metastasis. TECHNIQUE: A liver biopsy was performed. The procedure as well as the benefits and possible complications including infection and bleeding were explained to the patient. Informed consent was obtained. Conscious sedation was performed. The patient received 1 mg of Versed and 25 mcg of fentanyl intravenously. Conscious sedation was started at 9:28 a.m. and terminated at 9:52 p.m.. The patient was independently monitored by the department nurse. The overlying skin was prepped and draped in the usual sterile fashion. Following local anesthetic application, 7 core biopsies of the right lobe of the liver were obtained with an 18 gauge core biopsy needle system. The patient tolerated the procedure well. COMPARISON: Comparison is made with prior study dated November 25, 2024. FINDINGS: Successful CT-guided core biopsies of the right lobe of the liver. CT/Biopsy/Inj or Needle Placement IMPRESSION: Successful CT-guided core biopsies of the right lobe of the liver as described. The patient tolerated the procedure well. No immediate post biopsy complication noted. One or more dose reduction techniques were used (e.g., Automated exposure contr ol, adjustment of the mA and/or kV according to patient size, use of iterative reconstruction technique). Reading Location: [facility]
[2024-12-02] MEDS: Midazolam 2 MG/2 ML Syringe IV (09:30)
[2024-12-02] MEDS: 0.9% Saline Lock 10 ML Syringe IV (09:31)
[2024-12-02] MEDS: Lidocaine 2% (20 ml mdv) 20 ML Vial INFILT (09:49)
[2024-12-02] MEDS: Ketorolac 15 MG/ML Vial IV (10:49)
--- NOTE | 2024-12-02 11:42 | NURSING ---
Report given to CHING Rodriguez. Advised to be aware of sudden weakness or dizziness as that would be a sign of internal bleeding. Pt tolerated well. Given 4mg Zofran, 1mg Versed, 25mcg Fentanyl and 15mg Toradol all IV throughout visit in Radiology. Pt tolerated well.
== END | disposition home or self-care (01) ==
PROVIDERS: PCP Nurse Practitioner Family; Referring Provider Family Medicine Geriatric Medicine; Visit Provider Family Medicine Geriatric Medicine
DX: K74.60 Unspecified cirrhosis of liver (principal); K76.0 Fatty (change of) liver, not elsewhere classified
CPT/HCPCS: 47000; 77012; 99156; A4216; J2405

== ENCOUNTER → 2024-12-12 | Outpatient (CLI) | payer MEDICARE, SELFPAY ==
--- NOTE | 2024-12-12 15:00 | CT_ITS ---
PROCEDURE: ABDOMEN/PEL W ORAL CONT ONLY 12/12/2024 REASON FOR EXAM: ABDOMINAL DISTENSION (GASEOUS),CONSTIPATION, UNSPECIFIED TECHNIQUE: Abdomen and pelvis CT without intravenous contrast. Noncontrast technique limits evaluation of the abdominal and pelvic viscera. Coronal and Sagittal reconstruction series were provided. One or more dose reduction techniques were used (e.g., Automated exposure control, adjustment of the mA and/or kV according to patient size, use of iterative reconstruction technique). PATIENT PREPARATION: Per protocol ORAL CONTRAST TYPE: None. AMOUNT: mL COMPARISON: None FINDINGS: Lung bases: Mild dependent atelectasis Liver: Hepatomegaly with subtle nodularity of the liver cancer, suspicious for cirrhosis. Pneumobilia Gallbladder: Surgically absent Spleen: Atrophic. Pancreas: Normal size. No surrounding inflammation. Adrenals: Unremarkable Kidneys: No urolithiasis. No hydronephrosis. Bladder: Unremarkable Reproductive Organs: Normal uterine size and contour. Ovaries are unremarkable. Bowel: Oral contrast reaches the cecum without evidence of obstruction. The stomach is completely decompressed limiting evaluation. 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 No inflammatory changes of the small bowel. Mild stool burden within the large bowel. There is a small ventral hernia containing loops of small and large bowel. No evidence of obstruction. Appendix: The appendix is not identified. There is no inflammatory process identified in the right lower quadrant to suggest appendicitis. Lymph nodes: Unremarkable. Vasculature: Mild diffuse atherosclerotic calcifications are noted. Left external iliac vein stent. Peritoneum / Retroperitoneum: Small perihepatic free fluid. Soft tissue: Mild soft tissue thickening at the umbilicus. Mild subcutaneous soft tissue stranding of the bilateral lateral abdominal wall at the level of L1 vertebral body. Bones: Heterogeneous soft tissue lesion involving the L5 vertebral body. Degenerative changes of the lumbar spine. CT/Abdomen/Pel W ORAL Cont Only IMPRESSION: No evidence of obstruction. Mild stool burden within the large bowel. Small v entral hernia containing focal loops of small and large bowel. Suspected cirrhosis of the liver. Pneumobilia, please correlate clinically wit h recent instrumentation. Heterogeneous soft tissue lesion involving L5 vertebral body, this is concernin g for neoplasm. Underlying Mets can not be excluded. MRI of the lumbar spine is recommended for further characterization. Mild soft tissue thickening of the umbilicus and mild subcutaneous soft tissue stranding of the bilateral lateral abdominal wall, please correlate clinically for infection. [facility]
--- NOTE | 2024-12-12 15:00 | CT_ITS ---
EXAM: BRAIN/HEAD WITHOUT CONTRAST CLINICAL HISTORY: 79 y/o F with ALTERED MENTAL STATUS, UNSPECIFIED. COMPARISON: None. TECHNIQUE: Routine CT imaging of the head without IV contrast. Additional multiplanar reformats were obtained. Dose reduction techniques were used including intermediate exposure control (AEC),iterative reconstruction technique, and/or mA and/or KV dose adjustments based on patient's size. FINDINGS: Mild generalized cerebral and cerebellar volume loss with concordant prominence of the ventricles and subarachnoid spaces. Severe patchy and confluent supratentorial white matter hypodensities. Chronic lacunar type infarct within the right caudate head. No acute intracranial hemorrhage or herniation. Minimal mucosal thickening of the right frontal sinus. The visualized paranasal sinuses and mastoids are otherwise unremarkable. Prior ocular lens replacements. No acute calvarial fracture or scalp hematoma. CT/Brain/Head without Contrast IMPRESSION: 1. No acute intracranial finding. 2. Findings of severe chronic microvascular ischemic changes and age-related ch anges. Reading Location: [id number]
== END | disposition home or self-care (01) ==
PROVIDERS: PCP Nurse Practitioner Family; Referring Provider Family Medicine Geriatric Medicine; Visit Provider Family Medicine Geriatric Medicine
DX: R14.0 Abdominal distension (gaseous) (principal); R41.82 Altered mental status, unspecified; M62.81 Muscle weakness (generalized); K59.00 Constipation, unspecified
CPT/HCPCS: 70450; 74176